=== PATIENT | male | born 1965 | race Caucasian/White ===

== ENCOUNTER 2016-10-20 19:05 | Emergency (ER) | payer MEDICARE, OTHER ==
[~2016-10-20] VITALS: Ht 167.6 cm; Wt 81.0 kg
[~2016-10-20 19:05] MED LIST: ASPI81TA82 PO; CYMB30CA PO; LOPR50TA12 PO; METHO500 PO; MORP30 PO
[2016-10-20 19:07] VITALS: BP 145/81; PULSE 93; RESP 15; TEMP 98.1; O2SAT 97
[2016-10-20 20:42] VITALS: BP 158/86; PULSE 70; RESP 18; O2SAT 100
[2016-10-20] MEDS ORDERED: diphenhydrAMINE HCL 50 MG/ML VIAL IVP ONE (20:45)
[2016-10-20] MEDS ORDERED: KETOROLAC TROMETHAMINE 30 MG/ML (IVP) VIAL IVP ONE (20:45)
[2016-10-20] MEDS ORDERED: PROCHLORPERAZINE INJ 10 MG/2 ML VIAL IVP ONE (20:45)
--- NOTE | 2016-10-20 21:12 | RADRPT ---
EXAM DATE/TIME: 10/20/2016 20:55 [facility] COMPARISON: CT BRAIN W/O CONTRAST, April 17, 2016, 0:38. INDICATIONS : Cephalgia. RADIATION DOSE: 33.94 CTDIvol (mGy) MEDICAL HISTORY : Hypertension. CVA SURGICAL HISTORY : None. ENCOUNTER: Initial ACUITY: 1 day PAIN SCALE: 8/10 LOCATION: cranial TECHNIQUE: Multiple contiguous axial images were obtained of the head. Using automated exposure control and adj ustment of the mA and/or kV according to patient size, radiation dose was kept as low as reasonably a chievable to obtain optimal diagnostic quality images. FINDINGS: CEREBRUM: The ventricles are normal for age. No evidence of midline shift, mass lesion, hemorrhage or acute in farction. No extra-axial fluid collections are seen. POSTERIOR FOSSA: The cerebellum and brainstem are intact. The 4th ventricle is midline. The cerebellopontine angle i s unremarkable. EXTRACRANIAL: The visualized portion of the orbits is intact. SKULL: The calvaria is intact. No evidence of skull fracture. CONCLUSION: Normal examination. Edilson Do MD on October 20, 2016 at 21:10 Board Certified Radiologist. This report was verified electronically.
[2016-10-20 21:17] LABS: AUTOMATED NEUTROPHIL # 6.3 TH/MM3 (1.8-7.7); BASOPHIL # 0.1 TH/MM3 (0-0.2); BASOPHIL % 0.6 % (0.0-2.0); EOSINOPHIL # 0.2 TH/MM3 (0-0.4); HEMATOCRIT 42.2 % (39.0-51.0); HEMO FLAGS DIFF FINAL; LYMPH % 21.9 % (9.0-44.0); LYMPHOCYTE # 2.1 TH/MM3 (1.0-4.8); MEAN CELL VOLUME 89.8 FL (80.0-100.0); MEAN CORPUSCULAR HEMOGLOBIN 30.7 PG (27.0-34.0); MEAN CORPUSCULAR HGB CONC 34.2 % (32.0-36.0); MONO % 10.5 % (0.0-8.0); PLATELET COUNT 276 TH/MM3 (150-450); RED CELL DISTRIBUTION WIDTH 13.7 % (11.6-17.2); WHITE BLOOD COUNT 9.6 TH/MM3 (4.0-11.0)
[2016-10-20 21:18] VITALS: BP 151/85; PULSE 67; RESP 18; O2SAT 100
[2016-10-20 21:29] LABS: BICARBONATE 29.1 MEQ/L (21.0-32.0); MAGNESIUM 2.4 MG/DL (1.5-2.5); POTASSIUM 3.5 MEQ/L (3.5-5.1)
--- NOTE | 2016-10-20 22:05 | PD ---
Data Data Last Documented VS Vital Signs Date Time Temp Pulse Resp B/P Pulse Ox O2 Delivery O2 Flow Rate FiO2 10/20/16 21:18 67 18 151/85 100 Room Air 10/20/16 19:07 98.1 Orders Complete Blood Count With Diff (10/20/16 20:45) Basic Metabolic Panel (Bmp) (10/20/16 20:45) Magnesium (Mg) (10/20/16 20:45) Ct Brain W/O Iv Contrast(Rout) (10/20/16 20:45) Iv Access Insert/Monitor (10/20/16 20:45) Ketorolac Inj (Toradol Inj) (10/20/16 20:45) Prochlorperazine Inj (Compazine Inj) (10/20/16 20:45) Diphenhydramine Inj (Benadryl Inj) (10/20/16 20:45) C-Reactive Protein (Crp) (10/20/16 20:49) Westergren Sedimentation Rate (10/20/16 20:52) Labs Laboratory Tests Test 10/20/16 21:00 White Blood Count 9.6 TH/MM3 Red Blood Count 4.70 MIL/MM3 Hemoglobin 14.4 GM/DL Hematocrit 42.2 % Mean Corpuscular Volume 89.8 FL Mean Corpuscular Hemoglobin 30.7 PG Mean Corpuscular Hemoglobin 34.2 % Concent Red Cell Distribution Width 13.7 % Platelet Count 276 TH/MM3 Mean Platelet Volume 8.1 FL Neutrophils (%) (Auto) 65.0 % Lymphocytes (%) (Auto) 21.9 % Monocytes (%) (Auto) 10.5 % Eosinophils (%) (Auto) 2.0 % Basophils (%) (Auto) 0.6 % Neutrophils # (Auto) 6.3 TH/MM3 Lymphocytes # (Auto) 2.1 TH/MM3 Monocytes # (Auto) 1.0 TH/MM3 Eosinophils # (Auto) 0.2 TH/MM3 Basophils # (Auto) 0.1 TH/MM3 CBC Comment DIFF FINAL Differential Comment Erythrocyte Sedimentation Rate 1 mm/hr Sodium Level 137 MEQ/L Potassium Level 3.5 MEQ/L Chloride Level 100 MEQ/L Carbon Dioxide Level 29.1 MEQ/L Anion Gap 8 MEQ/L Blood Urea Nitrogen 13 MG/DL Creatinine 1.24 MG/DL Estimat Glomerular Filtration 61 ML/MIN Rate Random Glucose 96 MG/DL Calcium Level 8.5 MG/DL Magnesium Level 2.4 MG/DL C-Reactive Protein LESS THAN 0.29 MG/DL MDM Supervised Visit with GEMA: Yes Narrative Course The history, exam, and medical decision-making in the associated midlevel provider note were completed with my assistance. I reviewed and agree with the findings presented. I attest that I had a [id number] encounter with the patient on the same day, and personally performed and documented my assessment and findings in the medical record. *My assessment and Findings: This is a 50-year-old male who presents to the emergency department with headache but spitting going on for 3-4 days. He saw his primary care doctor who gave him an injection of Toradol but the pains only worsening. It radiates back into his neck. He is not systemically ill. He has a normal neurologic exam. Labs were obtained which were all reassuring including normal inflammatory markers so I doubt epidural abscess or discitis. CT of the head was unremarkable. Patient's symptoms were not alleviated by Compazine and Toradol. He is opiate dependent at home, and takes morphine which is prescribed by the same physician routinely. Due to his chronic opiate dependence, patient was treated with opiates for headache and will be discharged home. Sherie Vargas MD Oct 20, 2016 22:04
--- NOTE | 2016-10-20 22:10 | PD ---
HPI Chief Complaint: Headache Time Seen by Provider: 22:05 Travel History International Travel<30 days: No Contact w/Intl Traveler<30days: No Traveled to known affect area: No History of Present Illness HPI 50-year-old male that presents to the ED for evaluation of severe headache. Per patient she's had this headache on and off for the past 3 days with nausea. Per patient he seems to start on the back of the neck and moves towards the front causing pressure in the back of the eyes as well as nausea. Per patient he denies any recent injury. Per patient he did went to see his doctor today who gave him Toradol for pain with minimal relief. The patient has no numbness , tilling, weakness. No blurry vision or double vision. He does state having headaches in the past but not as bad as this. He does have a history of chronic pain to the back and other areas. Patient was seen here in May for discitis. He denies any history of IV drug abuse or any drug abuse and per in the past he has been positive for cocaine. Patient currently takes pain medication including morphine. Per patient the headache is 8 out of 10. Not thunderclap. Not the worse headache of his life. PFSH Past Medical History Hx Anticoagulant Therapy: Yes (ASA) Arthritis: Yes Asthma: No Autoimmune Disease: No Blood Disorders: No Bipolar Disorder: Yes Anxiety: Yes Depression: Yes Heart Rhythm Problems: No Cancer: No Cardiac Catheterization: Yes (2001) Cardiovascular Problems: Yes (HTN) High Cholesterol: Yes Chemotherapy: No Chest Pain: Yes Congestive Heart Failure: Yes (borderline) COPD: No Cerebrovascular Accident: No Diabetes: No Diminished Hearing: Yes (OCCASIONAL DIZZINESS FROM AN OLD EAR INJURY) Deep Vein Thrombosis: Yes Endocrine: No Gastrointestinal Disorders: Yes (Hepatitis B ) GERD: Yes Genitourinary: No Headaches: No Hepatitis: Yes (TYPE B) Hiatal Hernia: No Heparin Induced Thrombocytopen: No Herniated Disk: Yes Hypertension: Yes Immune Disorder: No Implanted Vascular Access Dvce: No Musculoskeletal: Yes (athritis) Neurologic: Yes (TIA ) Psychiatric: Yes Reproductive: No Respiratory: No Immunizations Current: Yes Migraines: No Myocardial Infarction: Yes Radiation Therapy: No Seizures: Yes (2005 RELATED TO WITHDRAWAL FROM BENZOS) Sleep Apnea: No Thyroid Disease: No Ulcer: No Tetanus Vaccination: < 5 Years Influenza Vaccination: Yes Past Surgical History Abdominal Surgery: No Appendectomy: Yes Cardiac Surgery: No Coronary Artery Bypass Graft: No Ear Surgery: No Endocrine Surgery: No Eye Surgery: No Genitourinary Surgery: No Neurologic Surgery: Yes Oral Surgery: No Thoracic Surgery: No Tonsillectomy: Yes Other Surgery: Yes (steroid injections for pain related to lower back) Family History Family Myocardial Infarction: Yes (mother had NH) Social History Alcohol Use: Yes (PT STATES " ON OCCASION" ) Tobacco Use: Yes (1/2 PPD) Substance Use: No Allergies-Medications (Allergen,Severity, Reaction): Coded Allergies: Penicillin (Verified Allergy, Severe, RASH, 10/20/16) Reported Meds & Prescriptions Reported Meds & Active Scripts Active Morphine [id number] 30 Mg Tab 30 Mg PO Q12HR Reported Cymbalta (Duloxetine HCl) 30 Mg Cap 60 Mg PO BID Lopressor (Metoprolol Tartrate) 50 Mg Tab 25 Mg PO TID Aspir-81 (Aspirin) 81 Mg Tab 81 Mg PO DAILY Review of Systems Except as stated in HPI: all other systems reviewed are Neg Physical Exam Narrative GENERAL: SKIN: Warm and dry. HEAD: Atraumatic. Normocephalic. EYES: Pupils equal and round 4 mm reactive to light and accommodation. No scleral icterus. No injection or drainage. ENT: No nasal bleeding or discharge. Mucous membranes pink and moist. Tongue is midline. No uvula deviation. NECK: Trachea midline. No JVD. CARDIOVASCULAR: Regular rate and rhythm. No murmurs, S3, S4. RESPIRATORY: No accessory muscle use. Clear to auscultation. Breath sounds equal bilaterally. GASTROINTESTINAL: Abdomen soft, non-tender, nondistended. Hepatic and splenic margins not palpable. MUSCULOSKELETAL: Extremities without clubbing, cyanosis, or edema. No obvious deformities. Full range of motion of the upper and lower extremities bilaterally. 2+ pulses bilaterally. No cervical, thoracic, lumbar spine tenderness to palpation. NEUROLOGICAL: Awake and alert. No obvious cranial nerve deficits. Motor grossly within normal limits. Five out of 5 muscle strength in the arms and legs. Normal speech. PSYCHIATRIC: Appropriate mood and affect; insight and judgment normal. Data Data Last Documented VS Vital Signs Date Time Temp Pulse Resp B/P Pulse Ox O2 Delivery O2 Flow Rate FiO2 10/20/16 22:21 72 18 166/82 99 Room Air 10/20/16 19:07 98.1 Orders Complete Blood Count With Diff (10/20/16 20:45) Basic Metabolic Panel (Bmp) (10/20/16 20:45) Magnesium (Mg) (10/20/16 20:45) Ct Brain W/O Iv Contrast(Rout) (10/20/16 20:45) Iv Access Insert/Monitor (10/20/16 20:45) Ketorolac Inj (Toradol Inj) (10/20/16 20:45) Prochlorperazine Inj (Compazine Inj) (10/20/16 20:45) Diphenhydramine Inj (Benadryl Inj) (10/20/16 20:45) C-Reactive Protein (Crp) (10/20/16 20:49) Westergren Sedimentation Rate (10/20/16 20:52) Morphine Inj (Morphine Inj) (10/20/16 22:15) Ondansetron Inj (Zofran Inj) (10/20/16 22:15) Labs Laboratory Tests Test 10/20/16 21:00 White Blood Count 9.6 TH/MM3 Red Blood Count 4.70 MIL/MM3 Hemoglobin 14.4 GM/DL Hematocrit 42.2 % Mean Corpuscular Volume 89.8 FL Mean Corpuscular Hemoglobin 30.7 PG Mean Corpuscular Hemoglobin 34.2 % Concent Red Cell Distribution Width 13.7 % Platelet Count 276 TH/MM3 Mean Platelet Volume 8.1 FL Neutrophils (%) (Auto) 65.0 % Lymphocytes (%) (Auto) 21.9 % Monocytes (%) (Auto) 10.5 % Eosinophils (%) (Auto) 2.0 % Basophils (%) (Auto) 0.6 % Neutrophils # (Auto) 6.3 TH/MM3 Lymphocytes # (Auto) 2.1 TH/MM3 Monocytes # (Auto) 1.0 TH/MM3 Eosinophils # (Auto) 0.2 TH/MM3 Basophils # (Auto) 0.1 TH/MM3 CBC Comment DIFF FINAL Differential Comment Erythrocyte Sedimentation Rate 1 mm/hr Sodium Level 137 MEQ/L Potassium Level 3.5 MEQ/L Chloride Level 100 MEQ/L Carbon Dioxide Level 29.1 MEQ/L Anion Gap 8 MEQ/L Blood Urea Nitrogen 13 MG/DL Creatinine 1.24 MG/DL Estimat Glomerular Filtration 61 ML/MIN Rate Random Glucose 96 MG/DL Calcium Level 8.5 MG/DL Magnesium Level 2.4 MG/DL C-Reactive Protein LESS THAN 0.29 MG/DL MDM Medical Decision Making Medical Screen Exam Complete: Yes Emergency Medical Condition: Yes Medical Record Reviewed: Yes Interpretation(s) Last Impressions Head CT 10/20/162044 Signed Impressions: Service Date/Time: September 20:55 - CONCLUSION: Normal examination. Edilson Do MD CBC & BMP Diagram 10/20/16 21:00 ESR and CRP negative. Differential Diagnosis Migraine headache versus tension headache versus neuropathy versus discitis versus less likely bleed Narrative Course 50-year-old male that presents to the ED for evaluation of severe headache. Patient was properly examined and was found to have signs and symptoms that appear to consistent with tension headache or headache related more to the neck. Case was discussed in my attending for agrees with plan. Patient had imaging and labs ordered. ESR and CRP were done to rule out any sign of infection as patient does have a history of discitis in the past of questionable source. Labs and imaging were essentially done and were negative. Patient was given IV Compazine, Benadryl and Toradol with minimal relief as well as with fluids. My attending Dr Vargas evaluated the patient with me and agrees with treating with pain medication as patient does have a history of opiate dependence. Patient was given IV morphine and Zofran. Patient will be reassessed any better patient will be discharged home with instructions to follow up with PCP. See ED if worst. Diagnosis Primary Impression: Tension headache Patient Instructions: General Instructions, Narcotic given in the ED Additional Instructions: F/u PCP. See ED if worst. Motrin or tylenol for pain. Med/Other Pt SpecificInfo: No Change to Meds Disposition: 01 DISCHARGE HOME Condition: Stable Binh Gray Oct 20, 2016 22:10
[2016-10-20] MEDS ORDERED: ONDANSETRON HCL 4 MG/2 ML VIAL IV PUSH ONE (22:15)
[2016-10-20] MEDS ORDERED: MORPHINE SULFATE 8 MG/ML INJ IV PUSH ONE (22:15)
[2016-10-20 22:21] VITALS: BP 166/82; PULSE 72; RESP 18; O2SAT 99
== END 2016-10-20 23:21 | disposition home or self-care (01) ==
LOC: NEPE 19:05
DX: G44.209 Tension-type headache, unspecified, not intractable (principal); I10 Essential (primary) hypertension; E78.00 Pure hypercholesterolemia, unspecified; F17.200 Nicotine dependence, unspecified, uncomplicated; I25.2 Old myocardial infarction; H91.90 Unspecified hearing loss, unspecified ear; Z79.82 Long term (current) use of aspirin; Z86.718 Personal history of other venous thrombosis and embolism; Z86.59 Personal history of other mental and behavioral disorders; Z87.39 Personal history of other diseases of the musculoskeletal system and connective tissue; Z86.79 Personal history of other diseases of the circulatory system; Z87.19 Personal history of other diseases of the digestive system; Z86.19 Personal history of other infectious and parasitic diseases; Z86.69 Personal history of other diseases of the nervous system and sense organs; Z79.899 Other long term (current) drug therapy
CPT/HCPCS: 70450; 80048; 83735; 85025; 85652; 86140; 96374; 96375; 99284; J0780; J1200; J1885; J2270; J2405

== ENCOUNTER 2016-10-22 20:24 | Emergency (ER) | payer MEDICARE, OTHER ==
[~2016-10-22] VITALS: Ht 167.6 cm; Wt 82.0 kg
[~2016-10-22 20:24] MED LIST changes: -METHO500 PO
[2016-10-22 20:26] VITALS: BP 130/62; PULSE 80; RESP 18; TEMP 97.7; O2SAT 98
[2016-10-22] MEDS ORDERED: MORP15TA73 PO (20:39)
[2016-10-22] MEDS ORDERED: ASPI81TA81 (20:39)
[2016-10-22] MEDS ORDERED: METO-309 PO (20:39)
[2016-10-22] MEDS ORDERED: CYMB60CA PO (20:39)
[2016-10-22] MEDS ORDERED: diphenhydrAMINE HCL 50 MG/ML VIAL IV PUSH ONE (20:45)
[2016-10-22] MEDS ORDERED: KETOROLAC TROMETHAMINE 30 MG/ML (IVP) VIAL IV PUSH ONE (20:45)
[2016-10-22] MEDS ORDERED: PROCHLORPERAZINE INJ 10 MG/2 ML VIAL IVS ONE (20:45)
[2016-10-22] MEDS ORDERED: SODIUM CHLOR 0.9% 1000 ML INJ 1,000 ML IV ONE (20:45)
--- NOTE | 2016-10-22 20:57 | PD ---
HPI Chief Complaint: Headache Time Seen by Provider: 20:51 Travel History International Travel<30 days: No Contact w/Intl Traveler<30days: No Traveled to known affect area: No History of Present Illness HPI 50-year-old white male presents to emergency department second time with complaints of headache. He states that he's been having persistent headaches now for the last 4 days. He was seen by his primary care doctor on and given a shot of Toradol. He had his morphine refilled but he could not get it filled yet because he ran out prematurely. He was also given a prescription for Robaxin which she has not filled. Patient has a prescription for an outpatient MRI of his neck. He has had this now for the past month. He was seen on Monday in the ER and had a CAT scan performed. The CAT scan was unremarkable for any acute process. He is given medication some temporary relief of his headache. He states that the headache has returned. He states that it starts at the back of the base of his head by his neck and radiates up around his head to the front. He states that is a sharp throbbing pounding pain. He rates the pain a 8/10 now but has been up as high as 10 out of 10. He had associated nausea but no vomiting. Occasional dizziness. He denies any recent illness or injury. No fever chills, ear pain, sore throat, cough, blurred vision, double vision, photophobia. He does have a history of intermittent tingling in his hands from his neck. Patient has history of chronic neck pain, substance abuse, discitis in his back and which I diagnosed back in May. PFSH Past Medical History Hx Anticoagulant Therapy: Yes (ASA) Arthritis: Yes Asthma: No Autoimmune Disease: No Blood Disorders: No Bipolar Disorder: Yes Anxiety: Yes Depression: Yes Heart Rhythm Problems: No Cancer: No Cardiac Catheterization: Yes (2001) Cardiovascular Problems: Yes (DC 2001/HTN) High Cholesterol: Yes Chemotherapy: No Chest Pain: Yes Congestive Heart Failure: Yes (borderline) COPD: No Cerebrovascular Accident: No Diabetes: No Diminished Hearing: Yes (OCCASIONAL DIZZINESS FROM AN OLD EAR INJURY) Deep Vein Thrombosis: Yes Endocrine: No Gastrointestinal Disorders: Yes (Hepatitis B ) GERD: Yes Genitourinary: No Headaches: No Hepatitis: Yes (TYPE B) Hiatal Hernia: No Heparin Induced Thrombocytopen: No Herniated Disk: Yes Hypertension: Yes Immune Disorder: No Implanted Vascular Access Dvce: No Musculoskeletal: Yes (athritis) Neurologic: Yes (TIA ) Psychiatric: Yes Reproductive: No Respiratory: No Immunizations Current: Yes Migraines: No Myocardial Infarction: Yes Radiation Therapy: No Seizures: Yes (2006 RELATED TO WITHDRAWAL FROM BENZOS) Sleep Apnea: No Thyroid Disease: No Ulcer: No Past Surgical History Abdominal Surgery: No Appendectomy: Yes Cardiac Surgery: No Coronary Artery Bypass Graft: No Ear Surgery: No Endocrine Surgery: No Eye Surgery: No Genitourinary Surgery: No Neurologic Surgery: Yes Oral Surgery: No Thoracic Surgery: No Tonsillectomy: Yes Other Surgery: Yes (steroid injections for pain related to lower back) Social History Alcohol Use: Yes (PT STATES " ON OCCASION" ) Tobacco Use: Yes (2 PPD) Substance Use: No Allergies-Medications (Allergen,Severity, Reaction): Coded Allergies: Penicillin (Verified Allergy, Severe, RASH, 10/22/16) Reported Meds & Prescriptions Reported Meds & Active Scripts Active Reported Aspir-81 (Aspirin) [address] (Duloxetine HCl) 60 Mg Capdr 60 Mg PO BID Lopressor (Metoprolol Tartrate) 50 Mg Tab 50 Mg PO TID Morphine Sulfate CR (Morphine Sulfate) 15 Mg Tab 15 Mg PO BID Review of Systems Except as stated in HPI: all other systems reviewed are Neg Physical Exam Narrative GENERAL: Well-developed, well-nourished in no apparent distress. Nontoxic appearing. HEAD: Normocephalic, atraumatic. EYES: Pupils equal round and reactive. Extraocular motions intact. No scleral icterus. No injection or drainage. ENT: Nose clear. Throat without erythema, tonsillar hypertrophy or exudate. Uvula midline. Airway patent. NECK: Trachea midline. Supple, complaints of diffuse paraspinal tenderness, moves head freely. No central bony tenderness. Mild spasm. CARDIOVASCULAR: Regular rate and rhythm without murmurs, gallops, or rubs. RESPIRATORY: Clear to auscultation. Breath sounds equal bilaterally. No wheezes , rales, or rhonchi. GASTROINTESTINAL: Abdomen soft, non-tender, nondistended. No hepato-splenomegaly , or palpable masses. No guarding. EXTREMITIES: No clubbing, cyanosis, or edema. No joint tenderness. BACK: Nontender without deformity. No flank tenderness. NEUROLOGICAL: Awake, alert and oriented x 3 .Cranial nerves grossly intact. Motor and sensory grossly within normal limits. Normal speech. The patient sits up and moves freely. I see no acute sensorimotor deficits. Normal gait. No ataxia. Data Data Last Documented VS Vital Signs Date Time Temp Pulse Resp B/P Pulse Ox O2 Delivery O2 Flow Rate FiO2 10/22/16 20:26 97.7 80 18 130/62 98 Orders Iv Access Insert/Monitor (10/22/16 20:44) Sodium Chlor 0.9% 1000 Ml Inj (Ns 1000 M (10/22/16 20:45) Diphenhydramine Inj (Benadryl Inj) (10/22/16 20:45) Prochlorperazine Inj (Compazine Inj) (10/22/16 20:45) Ketorolac Inj (Toradol Inj) (10/22/16 20:45) MDM Medical Decision Making Medical Screen Exam Complete: Yes Emergency Medical Condition: Yes Medical Record Reviewed: Yes Differential Diagnosis MDM: High Differential diagnoses: Subarachnoid hemorrhage, intracranial bleed, aneurysm, pseudotumor, migraine, cluster headache, atypical migraine, temporal arteritis, connective tissue disorder, hypertension, temporal arteritis, sinusitis, sinus headache,malingering, substance abuse Narrative Course IV access is obtained. Patient's given a liter bolus of saline, Benadryl 50 mg IV, Compazine 10 mg IV, and 30 g of Toradol IV. The patient is currently out of his morphine. He cannot get it filled until next week because he ran out early and insurance would not pay. Review of the medical records indicates a history of substance abuse the past as well as chronic neck and back pain. I suspect that this is partially drug withdrawal, and chronic neck pain causing tension headache. I see no lateralizing signs. His CAT scan was unremarkable. He was seen by his doctor this week as well. The patient will be treated symptomatically. He'll be advised to see his doctor on Monday. The patient is reexamined at 2131. He states that his headache is improving. He is feeling drowsy. He states that the pain is not completely resolved. I explained to the patient that I suspect his headache is a tension type relating to his distal disease in his neck and lack of his opiates. He is advised to get his MRI of his neck as he is given a prescription for. I'm also an for him that he needs to see his doctor on Monday to discuss possible pain management involvement for injections. Patient verbally states understanding and is in agreement with this treatment plan of follow-up. This is tension headache, acute exacerbation of chronic neck pain, opiate withdrawal Diagnosis Primary Impression: Tension headache Additional Impressions: acute exacerbation of chronic neck pain Opiate withdrawal Patient Instructions: General Instructions Additional Instructions: Rest. Sleep. No driving today. Follow-up with your doctor on Monday. Get sure MRI scheduled. Follow-up with pain management to consider possible cortisone injections. Disposition: 01 DISCHARGE HOME Condition: Stable Compa Cabrera Oct 22, 2016 20:56
== END 2016-10-22 21:55 | disposition home or self-care (01) ==
LOC: NEPB 20:24
DX: G44.209 Tension-type headache, unspecified, not intractable (principal); M54.2 Cervicalgia; G89.29 Other chronic pain; F11.23 Opioid dependence with withdrawal
CPT/HCPCS: 96374; 96375; 99283; J0780; J1200; J1885; J7030

== ENCOUNTER 2016-10-27 06:59 | Emergency (ER) | payer MEDICARE, OTHER ==
[~2016-10-27] VITALS: Ht 167.6 cm; Wt 82.0 kg
[~2016-10-27 06:59] MED LIST changes: +ASPI81TA81; -ASPI81TA82 PO; -CYMB30CA PO; +CYMB60CA PO; -LOPR50TA12 PO; +METO-309 PO; +MORP15TA73 PO; -MORP30 PO
[2016-10-27 07:10] VITALS: BP 125/77; PULSE 90; RESP 18; TEMP 98.5; O2SAT 100
--- NOTE | 2016-10-27 07:42 | PD ---
HPI Chief Complaint: Alcohol/Drug Intoxication Time Seen by Provider: 07:20 Travel History International Travel<30 days: No Contact w/Intl Traveler<30days: No Traveled to known affect area: No History of Present Illness HPI This is a 50 year old male who presents to the emergency department with headache that started last night, but has been pretty constant over the past week, throbbing, 7/10. He says he thought it was going to make him pass out at home. It worsens when he goes from sitting to standing and he feels like his head is "going to explode". He has noticed some spots in his vision and some changes in his sense of smell. No family history of connective tissue disorder or aneurysm. He does have a history of high blood pressure. He did use cocaine last evening. PFSH Past Medical History Hx Anticoagulant Therapy: Yes (ASA) Arthritis: Yes Asthma: No Autoimmune Disease: No Blood Disorders: No Bipolar Disorder: Yes Anxiety: Yes Depression: Yes Heart Rhythm Problems: No Cancer: No Cardiac Catheterization: Yes (2001) Cardiovascular Problems: Yes (OR 2001/HTN) High Cholesterol: Yes Chemotherapy: No Chest Pain: Yes Congestive Heart Failure: Yes (borderline) COPD: No Cerebrovascular Accident: No Diabetes: No Diminished Hearing: Yes (OCCASIONAL DIZZINESS FROM AN OLD EAR INJURY) Deep Vein Thrombosis: Yes Endocrine: No Gastrointestinal Disorders: Yes (Hepatitis B ) GERD: Yes Genitourinary: No Headaches: No Hepatitis: Yes (TYPE B) Hiatal Hernia: No Heparin Induced Thrombocytopen: No Herniated Disk: Yes Hypertension: Yes Immune Disorder: No Implanted Vascular Access Dvce: No Musculoskeletal: Yes (athritis) Neurologic: Yes (TIA ) Psychiatric: Yes Reproductive: No Respiratory: No Immunizations Current: Yes Migraines: No Myocardial Infarction: Yes Radiation Therapy: No Seizures: Yes (2005 RELATED TO WITHDRAWAL FROM BENZOS) Sleep Apnea: No Thyroid Disease: No Ulcer: No Past Surgical History Abdominal Surgery: No Appendectomy: Yes Cardiac Surgery: No Coronary Artery Bypass Graft: No Ear Surgery: No Endocrine Surgery: No Eye Surgery: No Genitourinary Surgery: No Neurologic Surgery: Yes Oral Surgery: No Thoracic Surgery: No Tonsillectomy: Yes Other Surgery: Yes (steroid injections for pain related to lower back) Family History Family Myocardial Infarction: Yes (mother had OR) Social History Alcohol Use: Yes (PT STATES " ON OCCASION" ) Tobacco Use: Yes (1/2 PPD) Substance Use: No ("ALOT TONIGHT "COCINE ) Allergies-Medications (Allergen,Severity, Reaction): Coded Allergies: Penicillin (Verified Allergy, Severe, RASH, 10/27/16) Reported Meds & Prescriptions Reported Meds & Active Scripts Active Reported Aspir-81 (Aspirin) [address] (Duloxetine HCl) 60 Mg Capdr 60 Mg PO BID Lopressor (Metoprolol Tartrate) 50 Mg Tab 50 Mg PO TID Morphine Sulfate CR (Morphine Sulfate) 15 Mg Tab 15 Mg PO BID Review of Systems Except as stated in HPI: all other systems reviewed are Neg Physical Exam Narrative GENERAL:Well appearing, no acute distress SKIN: Warm and dry. HEAD: Atraumatic. Normocephalic. EYES: Pupils equal and round. No injection or drainage. ENT: Moist mucous membranes NECK: Trachea midline. CARDIOVASCULAR: Regular rate and rhythm. No murmur appreciated. RESPIRATORY: Clear to auscultation. Breath sounds equal bilaterally. GASTROINTESTINAL: Abdomen soft, non-tender, nondistended. MUSCULOSKELETAL: No obvious deformities. NEUROLOGICAL: Awake and alert. No obvious cranial nerve deficits. No dysarthria or aphasia. No upper or lower extremity drift. No upper extremity ataxia. Visual burrows intact. PSYCHIATRIC: Appropriate mood and affect; insight and judgment normal. Data Data Last Documented VS Vital Signs Date Time Temp Pulse Resp B/P Pulse Ox O2 Delivery O2 Flow Rate FiO2 10/27/16 10:30 82 20 137/88 96 Room Air 10/27/16 07:10 98.5 Orders Complete Blood Count With Diff (10/27/16 07:54) Comprehensive Metabolic Panel (10/27/16 07:54) ^ Insert Iv (10/27/16 07:54) Mri Brain W&W/O Contrast (10/27/16 ) Mri C Spine W&W/O Contrast (10/27/16 ) Mra Brain W/O Contrast (Cow) (10/27/16 ) Mra Carotids W Contrast (10/27/16 ) Hydromorphone Pf Inj (Dilaudid Pf Inj) (10/27/16 09:15) Ondansetron Inj (Zofran Inj) (10/27/16 09:15) Labs Laboratory Tests Test 10/27/16 07:24 White Blood Count 9.2 TH/MM3 Red Blood Count 4.92 MIL/MM3 Hemoglobin 15.3 GM/DL Hematocrit 44.4 % Mean Corpuscular Volume 90.3 FL Mean Corpuscular Hemoglobin 31.1 PG Mean Corpuscular Hemoglobin 34.4 % Concent Red Cell Distribution Width 13.9 % Platelet Count 292 TH/MM3 Mean Platelet Volume 8.1 FL Neutrophils (%) (Auto) 68.8 % Lymphocytes (%) (Auto) 23.5 % Monocytes (%) (Auto) 7.0 % Eosinophils (%) (Auto) 0.4 % Basophils (%) (Auto) 0.3 % Neutrophils # (Auto) 6.3 TH/MM3 Lymphocytes # (Auto) 2.2 TH/MM3 Monocytes # (Auto) 0.6 TH/MM3 Eosinophils # (Auto) 0.0 TH/MM3 Basophils # (Auto) 0.0 TH/MM3 CBC Comment DIFF FINAL Differential Comment Sodium Level 137 MEQ/L Potassium Level 4.1 MEQ/L Chloride Level 100 MEQ/L Carbon Dioxide Level 23.2 MEQ/L Anion Gap 14 MEQ/L Blood Urea Nitrogen 12 MG/DL Creatinine 1.23 MG/DL Estimat Glomerular Filtration 62 ML/MIN Rate Random Glucose 75 MG/DL Calcium Level 8.7 MG/DL Total Bilirubin 0.4 MG/DL Aspartate Amino Transf 41 U/L (AST/SGOT) Alanine Aminotransferase 32 U/L (ALT/SGPT) Alkaline Phosphatase 55 U/L Total Protein 7.6 GM/DL Albumin 4.4 GM/DL MDM Medical Decision Making Medical Screen Exam Complete: Yes Emergency Medical Condition: Yes Interpretation(s) Afebrile, no tachycardia, normotensive No leukocytosis Electrolytes are reassuring Last 24 hours Impressions Head Magnetic Resonance Angiography 10/27/16 Signed Impressions: Service Date/Time: October 09:27 - CONCLUSION: Unremarkable MR angiography of the brain. Variants of tunica-biloxi of Gill anatomy as above. Hal Claros MD Cervical Spine MRI 10/27/16 Signed Impressions: Service Date/Time: October 09:27 - CONCLUSION: No acute abnormality. Mild degenerative disc disease at C5-6 and C6-7 as described. No evidence of enhancing lesions or acute inflammatory process. Michael Campoverde MD Brain MRI 10/27/16 Signed Impressions: Service Date/Time: October 09:27 - CONCLUSION: No acute intracranial abnormality. Scattered sinus disease. Bola Smiley MD Differential Diagnosis Migraine headache, tension headache, vascular dissection, aortic dissection, cervical discitis Narrative Course This is a 50-year-old male who presents to the emergency department with a headache involving the posterior head and neck, constant and severe for one week. He does have a lot of substance abuse issues including opiate dependence as well as cocaine abuse last evening. He was placed on a monitor and an IV is established. Labs are obtained which are reassuring. I seen this patient twice in the past week. He does describe a concerning nature of headache with some change with standing up, and he has risk factors for severe pathology. I obtained an MRI and MRA which were both reassuring. I think the patient can be discharged home with symptomatic treatment for migraine. Diagnosis Primary Impression: Migraine headache Qualified Code: G43.001 - Migraine without aura and with status migrainosus, not intractable Additional Impression: Cocaine abuse Patient Instructions: General Instructions Additional Instructions: If you develop severe worsening headache, persistent vomiting, numbness, weakness, difficulty walking or difficulty talking return to the emergency department immediately. Sometimes in the emergency department we did not identify the cause of headaches. If you continued to have headaches it is very important that he followup with her primary care physician as you may need further testing with an MRI. Med/Other Pt SpecificInfo: Prescription(s) given Scripts Naproxen 500 Mg Ggh128 Mg PO BID PRN (PAIN SCALE 4 TO 10) #20 TAB Prov:Sherie Vargas MD 10/27/16 Disposition: 01 DISCHARGE HOME Condition: Stable Sherie Vargas MD Oct 27, 2016 07:42
[2016-10-27 08:32] LABS: AUTOMATED NEUTROPHIL # 6.3 TH/MM3 (1.8-7.7); BASOPHIL % 0.3 % (0.0-2.0); EOSINOPHIL % 0.4 % (0.0-4.0); HEMATOCRIT 44.4 % (39.0-51.0); HEMO FLAGS DIFF FINAL; LYMPH % 23.5 % (9.0-44.0); LYMPHOCYTE # 2.2 TH/MM3 (1.0-4.8); MEAN CELL VOLUME 90.3 FL (80.0-100.0); MEAN CORPUSCULAR HEMOGLOBIN 31.1 PG (27.0-34.0); MEAN CORPUSCULAR HGB CONC 34.4 % (32.0-36.0); NEUT % 68.8 % (16.0-70.0); PLATELET COUNT 292 TH/MM3 (150-450); RED BLOOD COUNT 4.92 MIL/MM3 (4.50-5.90); RED CELL DISTRIBUTION WIDTH 13.9 % (11.6-17.2); WHITE BLOOD COUNT 9.2 TH/MM3 (4.0-11.0)
[2016-10-27 08:53] LABS: ANION GAP 14 MEQ/L (5-15); AST (GOT) 41 U/L (15-37); BICARBONATE 23.2 MEQ/L (21.0-32.0); BLOOD UREA NITROGEN 12 MG/DL (7-18); CHLORIDE 100 MEQ/L (98-107); GLOMERULAR FILTRATION RATE 62 ML/MIN (>89); POTASSIUM 4.1 MEQ/L (3.5-5.1); SODIUM (NA) 137 MEQ/L (136-145)
[2016-10-27 08:57] LABS: ALKALINE PHOSPHATASE 55 U/L (45-117); ALT (GPT) 32 U/L (12-78); TOTAL BILIRUBIN ADULT 0.4 MG/DL (0.2-1.0)
[2016-10-27] MEDS ORDERED: ONDANSETRON HCL 4 MG/2 ML VIAL IV PUSH ONE (09:15)
[2016-10-27] MEDS ORDERED: HYDROmorphone HCL PF 1 MG/ML VIAL IV PUSH ONE (09:15)
[2016-10-27 10:30] VITALS: BP 137/88; PULSE 82; RESP 20; O2SAT 96
--- NOTE | 2016-10-27 10:40 | RADRPT ---
EXAM DATE/TIME: 10/27/2016 09:27 [facility] COMPARISON: No previous studies available for comparison. INDICATIONS : Cephalgia. MEDICAL HISTORY : Hypertension. SURGICAL HISTORY : Appendectomy. Tonsillectomy. Lt tibia, rt knee ENCOUNTER: Initial ACUITY: 1 day PAIN SCORE: 3/10 LOCATION: cranial Please note a normal MRA of the brain does not entirely exclude the possibility of a small aneurysm, nor the possibility of distal intracranial vessel disease. TECHNIQUE: 3D time of flight MRA was performed. Source images, multiplanar STS MIP, and 3D volume MIP reconstru ctions were reviewed. FINDINGS: Examination of the anterior circulation demonstrates no evidence of aneurysm or vascular information. No intracranial stenosis is identified. The distal cerebral vessels fill normally. Examination of posterior fossa also demonstrates no evidence of aneurysm or vascular malformation. Th e right vertebral artery terminates in the posterior inferior cerebral artery which can be seen as a normal variation with a dominant left vertebral artery. There are patent posterior communicating david kailyn bilaterally. CONCLUSION: Unremarkable MR angiography of the brain. Variants of wiyot of Gill anatomy as above. Hal Claros MD on October 27, 2016 at 10:36 Board Certified Radiologist. This report was verified electronically.
--- NOTE | 2016-10-27 10:46 | RADRPT ---
EXAM DATE/TIME: 10/27/2016 09:27 [facility] COMPARISON: CT BRAIN W/O CONTRAST, October 20, 2016, 20:55. INDICATIONS : Cephalgia. CONTRAST: 20 cc Omniscan (gadodiamide) IV MEDICAL HISTORY : Hypertension. SURGICAL HISTORY : Appendectomy. Tonsillectomy. Lt tibia, rt knee ENCOUNTER: Initial ACUITY: 1 day PAIN SCORE: 3/10 LOCATION: cranial TECHNIQUE: Multiplanar, multisequence MRI of the brain was performed both prior to and following the administrat ion of paramagnetic contrast. FINDINGS: CEREBRUM: The ventricles are normal for age. No evidence of midline shift, mass lesion, hemorrhage or acute in farction. No extraaxial fluid collections are seen. The pituitary gland and suprasellar cistern are normal in configuration. WHITE MATTER: No significant signal abnormalities are seen in the white matter. POSTERIOR FOSSA: The cerebellum and brainstem are intact. The 4th ventricle is midline. The cerebellopontine angle is unremarkable. The cerebellar tonsils are normal in position. DIFFUSION IMAGING: No focal areas of restricted diffusion are seen. No evidence of acute infarction. EXTRACRANIAL: The visualized portions of the orbits are unremarkable. Scattered sinus disease. POST-CONTRAST: No abnormal areas of parenchymal or dural enhancement. No evidence of blood-brain barrier breakdown. CONCLUSION: No acute intracranial abnormality. Scattered sinus disease. Bola Smiley MD on October 27, 2016 at 10:43 Board Certified Radiologist. This report was verified electronically.
--- NOTE | 2016-10-27 10:50 | RADRPT ---
EXAM DATE/TIME: 10/27/2016 09:27 [facility] COMPARISON: No previous studies available for comparison. INDICATIONS : Neck pain. CONTRAST: 20 cc Omniscan (gadodiamide) IV MEDICAL HISTORY : Hypertension. SURGICAL HISTORY : Appendectomy. Tonsillectomy. Lt tibia, rt knee ENCOUNTER: Initial ACUITY: 1 day PAIN SCORE: 3/10 LOCATION: neck TECHNIQUE: Multiplanar, multisequence MRI examination of the cervical spine was performed. FINDINGS: Alignment: A mild scoliotic deformity is identified of the lumbar spine. The curvature is convex to the left in the upper cervical segments. AP alignment is well preserved without evidence of listhesis. Craniocerv ical alignment is intact. Osseous structures and facet joints: Axial bodies are intact. Facet joints are well aligned. There is no evidence of fracture or bone josesito ow edema. There are no enhancing lesions. Intervertebral disc spaces: Mild degenerative disc disease is noted. A small left paracentral and posterolateral protrusion is seen at C5-6. There is mild foraminal encro achment but no significant epidural mass effect. A small left paracentral disc osteophyte complex with mild epidural effacement is noted. There is no significant foraminal encroachment. The vertebral disc are otherwise unremarkable. Neurologic structures: The spinal cord is normal caliber and signal intensity. There is no evidence of significant nerve jeannette t compression. There are no epidural, intradural intramedullary enhancing lesions. CONCLUSION: No acute abnormality. Mild degenerative disc disease at C5-6 and C6-7 as described. No evidence of enhancing lesions or acute inflammatory process. Michael Campoverde MD on October 27, 2016 at 10:42 Board Certified Radiologist. This report was verified electronically.
[2016-10-27] MEDS ORDERED: NAPR500T PO (11:10)
--- NOTE | 2016-10-27 11:25 | RADRPT ---
EXAM DATE/TIME: 10/27/2016 09:27 [facility] COMPARISON: No previous studies available for comparison. INDICATIONS : Aneurysm. CONTRAST: 20 cc Omniscan (gadodiamide) IV MEDICAL HISTORY : Hypertension. SURGICAL HISTORY : Appendectomy. Tonsillectomy. Lt tibia, rt knee ENCOUNTER: Initial ACUITY: 1 day PAIN SCORE: 3/10 LOCATION: cranial Percent stenosis is calculated using the diameter of the stenotic region over the diameter of the nor mal distal internal carotid artery. TECHNIQUE: Bolus infused MRA of the extracranial circulation was performed using a neurovascular coil. Post pro cessing was performed including rotationg subvolume maximum intensity projections of each carotid art prudence, rotating full volume maximum intensity projections of both carotid arteries, sagittal and sosa l sliding thin slab reformations of each carotid artery, and left oblique sliding thin slab reformati on through the aortic arch to include the origin of the arch branch vessels. FINDINGS: AORTIC ARCH: There is a three vessel origin of the great vessels from the aorta. No evidence of ostial narrowing. RIGHT CAROTID: The common carotid artery is intact. The carotid bulb has a normal configuration without ulceration or narrowing. The internal carotid artery lumen is smooth without stenosis. The external carotid ar sonya is intact. LEFT CAROTID: The common carotid artery is intact. The carotid bulb has a normal configuration without ulceration or narrowing. The internal carotid artery lumen is smooth without stenosis. The external carotid ar sonya is intact. VERTEBRALS: Left vertebral artery is dominant and widely patent. Right vertebral artery terminates at the skull b ase. CONCLUSION: Carotid MRA within normal limits. Rigoberto Lamas MD on October 27, 2016 at 11:20 Board Certified Radiologist. This report was verified electronically.
[2016-10-27] MEDS ORDERED: GADODIAMIDE PF 287 MG/ML 20 ML VIAL (for RAD MRI) IV ONE (11:58)
== END 2016-10-27 11:31 | disposition home or self-care (01) ==
LOC: NEPE 06:59
DX: G43.009 Migraine without aura, not intractable, without status migrainosus (principal); F14.10 Cocaine abuse, uncomplicated; M19.90 Unspecified osteoarthritis, unspecified site; F31.9 Bipolar disorder, unspecified; F41.8 Other specified anxiety disorders; I25.2 Old myocardial infarction; I10 Essential (primary) hypertension; E78.00 Pure hypercholesterolemia, unspecified; Z86.718 Personal history of other venous thrombosis and embolism; F17.210 Nicotine dependence, cigarettes, uncomplicated; Z79.82 Long term (current) use of aspirin
CPT/HCPCS: 70544; 70548; 70553; 72156; 80053; 85025; 96374; 96375; 99284; A9579; J1170; J2405

== ENCOUNTER 2016-11-16 21:35 | Emergency (ER) | payer MEDICARE, OTHER ==
[~2016-11-16] VITALS: Ht 167.6 cm; Wt 78.0 kg
[~2016-11-16 21:35] MED LIST changes: +NAPR500T PO
[2016-11-16 21:36] VITALS: BP 128/80; PULSE 73; RESP 14; TEMP 97.6; O2SAT 100
--- NOTE | 2016-11-16 23:52 | PD ---
HPI Chief Complaint: Suicide Ideation/Attempt Time Seen by Provider: 23:14 Travel History International Travel<30 days: No Contact w/Intl Traveler<30days: No Traveled to known affect area: No History of Present Illness HPI Patient's 51-year-old male with a history of major depressive disorder on Cymbalta presents emergency department for suicidal ideation and possible suicide attempt. Patient states that he's been feeling down and depressed lately. He usually gets his Cymbalta from primary care physician who recommends that he sees psychiatrist. He went [employer] today was referred here for "insurance reasons. Patient also states that he walked out in the traffic trying to kill himself today and "I don't know how the driver merchandiser missed me but I wish they didn't." Patient has complaints of chronic neck pain but no change from baseline. Denies any acute chest pain about pain shortness of breath shortly pain rash trauma. PFSH Past Medical History Hx Anticoagulant Therapy: Yes (ASA) Arthritis: Yes Asthma: No Autoimmune Disease: No Blood Disorders: No Bipolar Disorder: Yes Anxiety: Yes Depression: Yes Heart Rhythm Problems: No Cancer: No Cardiac Catheterization: Yes (2001) Cardiovascular Problems: Yes (HTN) High Cholesterol: Yes Chemotherapy: No Chest Pain: Yes Congestive Heart Failure: Yes (borderline) COPD: No Cerebrovascular Accident: No Diabetes: No Diminished Hearing: Yes (OCCASIONAL DIZZINESS FROM AN OLD EAR INJURY) Deep Vein Thrombosis: Yes Endocrine: No Gastrointestinal Disorders: Yes (Hepatitis B ) GERD: Yes Genitourinary: No Headaches: No Hepatitis: Yes (TYPE B) Hiatal Hernia: No Heparin Induced Thrombocytopen: No Herniated Disk: Yes Hypertension: Yes Immune Disorder: No Implanted Vascular Access Dvce: No Musculoskeletal: Yes (athritis) Neurologic: Yes (TIA ) Psychiatric: Yes Reproductive: No Respiratory: No Immunizations Current: Yes Migraines: No Myocardial Infarction: Yes Radiation Therapy: No Seizures: Yes (2005 RELATED TO WITHDRAWAL FROM BENZOS) Sleep Apnea: No Thyroid Disease: No Ulcer: No Tetanus Vaccination: < 5 Years Influenza Vaccination: Yes Past Surgical History Abdominal Surgery: No Appendectomy: Yes Cardiac Surgery: No Coronary Artery Bypass Graft: No Ear Surgery: No Endocrine Surgery: No Eye Surgery: No Genitourinary Surgery: No Neurologic Surgery: Yes Oral Surgery: No Thoracic Surgery: No Tonsillectomy: Yes Other Surgery: Yes (steroid injections for pain related to lower back) Family History Family Myocardial Infarction: Yes (mother had [place]) Social History Alcohol Use: Yes (PT STATES " ON OCCASION" ) Tobacco Use: Yes (1/2 PPD) Substance Use: No ("ALOT TONIGHT "COCINE ) Allergies-Medications (Allergen,Severity, Reaction): Coded Allergies: Penicillin (Verified Allergy, Severe, RASH, 11/16/16) Reported Meds & Prescriptions Reported Meds & Active Scripts Active Reported Aspir-81 (Aspirin) [address] (Duloxetine HCl) 60 Mg Capdr 60 Mg PO BID Lopressor (Metoprolol Tartrate) 50 Mg Tab 50 Mg PO TID Morphine Sulfate CR (Morphine Sulfate) 15 Mg Tab 15 Mg PO BID Review of Systems Except as stated in HPI: all other systems reviewed are Neg Physical Exam Narrative GENERAL: Well-developed well-nourished no apparent distress SKIN: Warm and dry. HEAD: Atraumatic. Normocephalic. EYES: Pupils equal and round. No scleral icterus. No injection or drainage. ENT: No nasal bleeding or discharge. Mucous membranes pink and moist. NECK: Trachea midline. No JVD. CARDIOVASCULAR: Regular rate and rhythm. No murmur appreciated. RESPIRATORY: No accessory muscle use. Clear to auscultation. Breath sounds equal bilaterally. GASTROINTESTINAL: Abdomen soft, non-tender, nondistended. Hepatic and splenic margins not palpable. MUSCULOSKELETAL: No obvious deformities. No clubbing. No cyanosis. No edema. NEUROLOGICAL: Awake and alert. No obvious cranial nerve deficits. Motor grossly within normal limits. Normal speech. PSYCHIATRIC: Flat affect with depressed mood. Endorses suicidal ideation denies homicidal ideation. Denies audiovisual hallucinations. Data Data Last Documented VS Vital Signs Date Time Temp Pulse Resp B/P Pulse Ox O2 Delivery O2 Flow Rate FiO2 11/16/16 21:48 70 20 11/16/16 21:36 97.6 128/80 100 Room Air Orders Complete Blood Count With Diff (11/16/16 23:36) Comprehensive Metabolic Panel (11/16/16 23:36) Psych Screen (11/16/16 23:36) Alcohol (Ethanol) (11/17/16 00:31) Drug Screen, Random Urine (11/17/16 00:31) Labs Laboratory Tests Test 11/16/16 23:35 White Blood Count 7.9 TH/MM3 Red Blood Count 4.58 MIL/MM3 Hemoglobin 14.3 GM/DL Hematocrit 41.5 % Mean Corpuscular Volume 90.4 FL Mean Corpuscular Hemoglobin 31.1 PG Mean Corpuscular Hemoglobin 34.4 % Concent Red Cell Distribution Width 13.4 % Platelet Count 230 TH/MM3 Mean Platelet Volume 8.0 FL Neutrophils (%) (Auto) 47.8 % Lymphocytes (%) (Auto) 36.3 % Monocytes (%) (Auto) 9.3 % Eosinophils (%) (Auto) 6.2 % Basophils (%) (Auto) 0.4 % Neutrophils # (Auto) 3.8 TH/MM3 Lymphocytes # (Auto) 2.9 TH/MM3 Monocytes # (Auto) 0.7 TH/MM3 Eosinophils # (Auto) 0.5 TH/MM3 Basophils # (Auto) 0.0 TH/MM3 CBC Comment DIFF FINAL Differential Comment Sodium Level 140 MEQ/L Potassium Level 3.5 MEQ/L Chloride Level 103 MEQ/L Carbon Dioxide Level 29.9 MEQ/L Anion Gap 7 MEQ/L Blood Urea Nitrogen 8 MG/DL Creatinine 1.22 MG/DL Estimat Glomerular Filtration 62 ML/MIN Rate Random Glucose 88 MG/DL Calcium Level 8.6 MG/DL Total Bilirubin 0.3 MG/DL Aspartate Amino Transf 20 U/L (AST/SGOT) Alanine Aminotransferase 33 U/L (ALT/SGPT) Alkaline Phosphatase 44 U/L Total Protein 7.3 GM/DL Albumin 4.0 GM/DL MDM Medical Decision Making Medical Screen Exam Complete: Yes Emergency Medical Condition: Yes Differential Diagnosis Suicidal ideation, suicidal attempt, major depressive disorder, substance abuse. Narrative Course Patient 51-year-old male presents emergency department for evaluation of suicidal ideation and possible suicide attempt earlier today. Patient states he is been taking his Cymbalta but has been feeling down and depressed and walked out into traffic today and states "I don't know how they missed me but I wish he didn't" referring to the driver merchandiser the car. Patient has no physical complaints other than his chronic back pain. He appears well medically stable for psychiatric evaluation and disposition. Placed under [facility] act by me. Diagnosis Primary Impression: Depression (emotion) Qualified Code: F33.2 - Severe episode of recurrent major depressive disorder , without psychotic features Additional Impression: Suicide attempt Condition: Stable Arik Pérez MD Nov 16, 2016 23:52
[2016-11-16 23:53] LABS: AUTOMATED NEUTROPHIL # 3.8 TH/MM3 (1.8-7.7); BASOPHIL % 0.4 % (0.0-2.0); EOSINOPHIL # 0.5 TH/MM3 (0-0.4); EOSINOPHIL % 6.2 % (0.0-4.0); HEMATOCRIT 41.5 % (39.0-51.0); HEMO FLAGS DIFF FINAL; LYMPH % 36.3 % (9.0-44.0); LYMPHOCYTE # 2.9 TH/MM3 (1.0-4.8); MEAN CELL VOLUME 90.4 FL (80.0-100.0); MEAN CORPUSCULAR HEMOGLOBIN 31.1 PG (27.0-34.0); MEAN CORPUSCULAR HGB CONC 34.4 % (32.0-36.0); MONO % 9.3 % (0.0-8.0); NEUT % 47.8 % (16.0-70.0); PLATELET COUNT 230 TH/MM3 (150-450); RED BLOOD COUNT 4.58 MIL/MM3 (4.50-5.90); RED CELL DISTRIBUTION WIDTH 13.4 % (11.6-17.2); WHITE BLOOD COUNT 7.9 TH/MM3 (4.0-11.0)
[2016-11-17 00:02] LABS: ANION GAP 7 MEQ/L (5-15); AST (GOT) 20 U/L (15-37); BICARBONATE 29.9 MEQ/L (21.0-32.0); BLOOD UREA NITROGEN 8 MG/DL (7-18); CHLORIDE 103 MEQ/L (98-107); GLOMERULAR FILTRATION RATE 62 ML/MIN (>89); POTASSIUM 3.5 MEQ/L (3.5-5.1); SODIUM (NA) 140 MEQ/L (136-145)
[2016-11-17 00:06] LABS: ALKALINE PHOSPHATASE 44 U/L (45-117); ALT (GPT) 33 U/L (12-78); TOTAL BILIRUBIN ADULT 0.3 MG/DL (0.2-1.0)
[2016-11-17 01:30] VITALS: BP 147/83; PULSE 72; RESP 20; O2SAT 96
[2016-11-17 02:32] LABS: AMPHETAMINE, URINE NEG (NEG); BARBITURATES, URINE NEG (NEG); COCAINE, URINE POS (NEG)
[2016-11-17 04:55] VITALS: BP 138/81; PULSE 73; RESP 20; O2SAT 97
[2016-11-17 08:07] VITALS: BP 142/88; PULSE 77; RESP 16; O2SAT 97
--- NOTE | 2016-11-17 12:23 | PD ---
History of Present Illness Chief Complaint: Suicide Ideation/Attempt Time Seen by Provider: 12:00 Travel History International Travel<30 Days: No Contact w/Intl Traveler<30days: No Known affected area: No Legal Status Legal Status: Involuntary [place] Act Signed By: DR. Darren Ty Act Comment: CERTIFICATE OF PROFESSIONAL INITIATING INVOLUNTARY EXAMINATION11/16/16@[id number] History of Present Illness: This is a 51-year-old male with a multiyear history of alcohol abuse, Ty acted last night by the emergency department physician for "suicidal behavior". Patient reportedly told the doctor he walked into traffic and wished he had been struck and killed. At the present time, the patient is not claiming to be suicidal or homicidal. He does state he was seen at [facility] for alcohol detox and rehabilitation yesterday but sent to [place] for medical clearance. At this time the patient is no longer intoxicated. He is not a candidate for detox and rehabilitation at this facility because we are not licensed for same. Furthermore, the Yt act was lifted because it does not apply to someone whose primary disorders alcohol abuse. Finally, the patient is homeless and this adds to his symptoms of depression. His Ty act was lifted and he was given a referral and bus passes to [facility]. PFSH Past Medical History Hx Anticoagulant Therapy: Yes (ASA) Arthritis: Yes Asthma: No Autoimmune Disease: No Blood Disorders: No Bipolar Disorder: Yes Anxiety: Yes Depression: Yes Heart Rhythm Problems: No Cancer: No Cardiac Catheterization: Yes (2001) Cardiovascular Problems: Yes (HTN) High Cholesterol: Yes Chemotherapy: No Chest Pain: Yes Congestive Heart Failure: Yes (borderline) COPD: No Cerebrovascular Accident: No Diabetes: No Diminished Hearing: Yes (OCCASIONAL DIZZINESS FROM AN OLD EAR INJURY) Deep Vein Thrombosis: Yes Endocrine: No Gastrointestinal Disorders: Yes (Hepatitis B ) GERD: Yes Genitourinary: No Headaches: No Hepatitis: Yes (TYPE B) Hiatal Hernia: No Heparin Induced Thrombocytopen: No Herniated Disk: Yes Hypertension: Yes Immune Disorder: No Implanted Vascular Access Dvce: No Musculoskeletal: Yes (athritis) Neurologic: Yes (TIA ) Psychiatric: Yes Reproductive: No Respiratory: No Immunizations Current: Yes Migraines: No Myocardial Infarction: Yes Radiation Therapy: No Seizures: Yes (2005 RELATED TO WITHDRAWAL FROM BENZOS) Sleep Apnea: No Thyroid Disease: No Ulcer: No Tetanus Vaccination: < 5 Years Influenza Vaccination: Yes Past Surgical History Abdominal Surgery: No Appendectomy: Yes Cardiac Surgery: No Coronary Artery Bypass Graft: No Ear Surgery: No Endocrine Surgery: No Eye Surgery: No Genitourinary Surgery: No Neurologic Surgery: Yes Oral Surgery: No Thoracic Surgery: No Tonsillectomy: Yes Other Surgery: Yes (steroid injections for pain related to lower back) Psychiatric History Psychiatric History Hx Psychiatric Treatment: REPORTS A LONG HX OF ANXIETY. NO PREVIOUS INPATIENT TREATMENT UNTIL SEP 2015. History of Inpatient Treatment: Yes Guns or firearms in home: No Social History Hx Alcohol Use: Yes (PT STATES " ON OCCASION" ) Hx Tobacco Use: Yes (09/26 PPD) Hx Substance Use: No ("ALOT TONIGHT "COCINE ) Substance Use Type: Crack, Marijuana, Prescription Medications, Synth Opiates- Pain Pills Other Substances Used: ADMITS TO USING CRACK TWICE A YR AND GOES LONG PERIODS WITHOUT SINCE HIS 18 Hx of Substance Use Treatment: No Allergies-Medications (Allergen,Severity, Reaction): Coded Allergies: Penicillin (Verified Allergy, Severe, RASH, 11/16/16) Reported Meds & Prescriptions Reported Meds & Active Scripts Active Reported Aspir-81 (Aspirin) [address] (Duloxetine HCl) 60 Mg Capdr 60 Mg PO BID Lopressor (Metoprolol Tartrate) 50 Mg Tab 50 Mg PO TID Morphine Sulfate CR (Morphine Sulfate) 15 Mg Tab 15 Mg PO BID Review of Systems ROS Limitations: Clinical Condition Except as stated in HPI: all other systems reviewed are Neg Exam Alert: Yes [place]: Person, Place, Date, Situation Mood: Calm Affect: Restricted Speech: Clear, Logical Eye Contact: Normal Memory Intact: Immediate, Recent, Remote Delusions: No Insight/Judgement Insight and judgment are deemed impaired but adequate and probably baseline. [facility] Medical Decision Making Medical Record Reviewed: Yes Assessment/Plan Patient's Ty act is being lifted and he is being referred to [facility] for alcohol detox and rehabilitation. Orders Complete Blood Count With Diff (11/16/16 23:36) Comprehensive Metabolic Panel (11/16/16 23:36) Psych Screen (11/16/16 23:36) Alcohol (Ethanol) (11/17/16 00:31) Drug Screen, Random Urine (11/17/16 00:31) Diet Regular Basic (11/17/16 Breakfast) Results Vital Signs Date Time Temp Pulse Resp B/P Pulse Ox O2 Delivery O2 Flow Rate FiO2 11/17/16 08:07 77 16 142/88 97 Room Air 11/17/16 04:55 73 20 138/81 97 Room Air 11/17/16 01:30 72 20 147/83 96 Room Air 11/16/16 21:48 70 20 11/16/16 21:36 97.6 73 14 128/80 100 Room Air Laboratory Tests Test 11/16/16 11/17/16 23:35 02:08 White Blood Count 7.9 Red Blood Count 4.58 Hemoglobin 14.3 Hematocrit 41.5 Mean Corpuscular Volume 90.4 Mean Corpuscular Hemoglobin 31.1 Mean Corpuscular Hemoglobin 34.4 Concent Red Cell Distribution Width 13.4 Platelet Count 230 Mean Platelet Volume 8.0 Neutrophils (%) (Auto) 47.8 Lymphocytes (%) (Auto) 36.3 Monocytes (%) (Auto) 9.3 Eosinophils (%) (Auto) 6.2 Basophils (%) (Auto) 0.4 Neutrophils # (Auto) 3.8 Lymphocytes # (Auto) 2.9 Monocytes # (Auto) 0.7 Eosinophils # (Auto) 0.5 Basophils # (Auto) 0.0 CBC Comment DIFF FINAL Differential Comment Sodium Level 140 Potassium Level 3.5 Chloride Level 103 Carbon Dioxide Level 29.9 Anion Gap 7 Blood Urea Nitrogen 8 Creatinine 1.22 Estimat Glomerular Filtration 62 Rate Random Glucose 88 Calcium Level 8.6 Total Bilirubin 0.3 Aspartate Amino Transf 20 (AST/SGOT) Alanine Aminotransferase 33 (ALT/SGPT) Alkaline Phosphatase 44 Total Protein 7.3 Albumin 4.0 Ethyl Alcohol Level LESS THAN 3 Urine Opiates Screen NEG Urine Barbiturates Screen NEG Urine Amphetamines Screen NEG Urine Benzodiazepines Screen NEG Urine Cocaine Screen POS Urine Cannabinoids Screen NEG Diagnosis Primary Impression: Alcohol abuse Departure Forms: Tests/Procedures Patient Instructions: General Instructions, Depression (ED) Disposition: 01 DISCHARGE HOME Condition: Stable Robert Olvera MD Nov 17, 2016 12:23
== END 2016-11-17 12:52 | disposition home or self-care (01) ==
LOC: NEPA 21:35
DX: F33.9 Major depressive disorder, recurrent, unspecified (principal); F10.10 Alcohol abuse, uncomplicated; F17.210 Nicotine dependence, cigarettes, uncomplicated; I10 Essential (primary) hypertension; Z86.718 Personal history of other venous thrombosis and embolism; Z86.73 Personal history of transient ischemic attack (TIA), and cerebral infarction without residual deficits; Z79.82 Long term (current) use of aspirin
CPT/HCPCS: 80053; 80307; 80320; 85025; 99284

== ENCOUNTER 2016-12-01 03:21 | Emergency (ER) | payer MEDICARE, OTHER ==
[~2016-12-01] VITALS: Ht 170.2 cm; Wt 82.0 kg
[~2016-12-01 03:21] MED LIST changes: -NAPR500T PO
[2016-12-01 03:26] VITALS: BP 129/69; PULSE 82; RESP 18; TEMP 98.4; O2SAT 96
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
[2016-12-01 03:55] VITALS: O2SAT 95; O2SAT 98
[2016-12-01] MEDS ORDERED: PROPOFOL 200 MG/20 ML AMP IV ONE (04:00)
[2016-12-01] MEDS ORDERED: SODIUM CHLOR 0.9% 1000 ML INJ 1,000 ML IV ONE (04:00)
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
[2016-12-01] MEDS ORDERED: IBUP-232 PO (04:21)
[2016-12-01] MEDS ORDERED: KETOROLAC TROMETHAMINE 30 MG/ML (IVP) VIAL IV PUSH ONE (04:30)
--- NOTE | 2016-12-01 05:13 | RADRPT ---
EXAM DATE/TIME: 12/01/2016 04:06 [facility] COMPARISON: SHOULDER RIGHT LTD (2VWS), December 01, 2016, 3:27. INDICATIONS : Post reduction. MEDICAL HISTORY : None. SURGICAL HISTORY : None. ENCOUNTER: Subsequent ACUITY: 1 day PAIN SCORE: Non-responsive. LOCATION: Right scapular FINDINGS: Two view examination of the right shoulder demonstrates normal alignment of the glenohumeral articula tion. Arm is no longer held in abduction suggesting interval reduction of a prior dislocation. Questi onable disruption of the anterior aspect of the glenoid. CONCLUSION: Questionable glenoid fracture. Alfredo Haile MD on December 01, 2016 at 5:04 Board Certified Radiologist. This report was verified electronically.
== END 2016-12-01 05:44 | disposition home or self-care (01) ==
LOC: NEPE 03:21
DX: S43.004A Unspecified dislocation of right shoulder joint, initial encounter (principal); F10.120 Alcohol abuse with intoxication, uncomplicated; E78.00 Pure hypercholesterolemia, unspecified; I10 Essential (primary) hypertension; F17.210 Nicotine dependence, cigarettes, uncomplicated; F14.90 Cocaine use, unspecified, uncomplicated; Z79.01 Long term (current) use of anticoagulants; G89.29 Other chronic pain; Y09 Assault by unspecified means; Y04.0XXA Assault by unarmed brawl or fight, initial encounter; W01.10XA Fall on same level from slipping, tripping and stumbling with subsequent striking against unspecified object, initial encounter
CPT/HCPCS: 23650; 73030; 80307; 96374; 99152; 99153; 99284; J1885; J7030

== ENCOUNTER 2017-03-11 12:27 | Emergency (ER) | payer MEDICARE, OTHER ==
[~2017-03-11] VITALS: Ht 167.6 cm; Wt 85.0 kg
[~2017-03-11 12:27] MED LIST changes: +IBUP-232 PO
[2017-03-11 12:29] VITALS: BP 133/79; PULSE 74; RESP 20; TEMP 97.8; O2SAT 99
[2017-03-11] MEDS ORDERED: LORA-474 PO (13:03)
[2017-03-11] MEDS ORDERED: MORP1TAB24 PO (13:03)
[2017-03-11] MEDS ORDERED: ONDANSETRON HCL 4 MG/2 ML VIAL IV PUSH ONE (13:15)
[2017-03-11] MEDS ORDERED: KETOROLAC TROMETHAMINE 30 MG/ML (IVP) VIAL IV PUSH ONE (13:15)
[2017-03-11] MEDS ORDERED: MORPHINE SULFATE 4 MG/ML INJ IV PUSH ONE (13:15)
--- NOTE | 2017-03-11 13:17 | PD ---
HPI Chief Complaint: Pain: Acute or Chronic Time Seen by Provider: 12:54 Travel History International Travel<30 days: No Contact w/Intl Traveler<30days: No Traveled to known affect area: No History of Present Illness HPI The patient is a 51-year-old male who presents to the emergency department for neck pain that radiates into the right upper extremity. The patient states he has a history of chronic neck pain and right shoulder pain which is progressively worsened over the last several weeks. Pain is worse with movement, occasionally is present at rest, but is exacerbated by lifting and certain types of movement. The pain starts in the neck and then radiates into the right shoulder down the right arm, he denies any numbness or tingling of the right upper extremity and notes minimal weakness. The patient does have a previous history of discitis in the lumbar region secondary to previous IVDA, however, has not used drugs intravenously since his previous discitis in 2015. He denies any fever, chills, or sweats. He denies any associated chest pain, short of breath, nausea, vomiting, or abdominal pain. PFSH Past Medical History Hx Anticoagulant Therapy: Yes (325 ASPIRIN DAILY LAST TAKEN 03/11) Arthritis: Yes Asthma: No Autoimmune Disease: No Blood Disorders: No Bipolar Disorder: Yes Anxiety: Yes Depression: Yes Heart Rhythm Problems: No Cancer: No Cardiac Catheterization: Yes (2001) Cardiovascular Problems: Yes (CATH 2001) High Cholesterol: Yes Chemotherapy: No Chest Pain: Yes Congestive Heart Failure: Yes (borderline) COPD: No Cerebrovascular Accident: No Diabetes: No Diminished Hearing: Yes (OCCASIONAL DIZZINESS FROM AN OLD EAR INJURY) Deep Vein Thrombosis: Yes Endocrine: No Gastrointestinal Disorders: Yes (Hepatitis B ) GERD: Yes Genitourinary: No Headaches: No Hepatitis: Yes (TYPE B) Hiatal Hernia: No Heparin Induced Thrombocytopen: No Herniated Disk: Yes Hypertension: Yes Immune Disorder: No Implanted Vascular Access Dvce: No Musculoskeletal: Yes (athritis) Neurologic: Yes (TIA ) Psychiatric: Yes Reproductive: No Respiratory: No Immunizations Current: Yes Migraines: No Myocardial Infarction: Yes Radiation Therapy: No Seizures: Yes (2005 RELATED TO WITHDRAWAL FROM BENZOS) Sleep Apnea: No Thyroid Disease: No Ulcer: No Past Surgical History Abdominal Surgery: No Appendectomy: Yes Cardiac Surgery: No Coronary Artery Bypass Graft: No Ear Surgery: No Endocrine Surgery: No Eye Surgery: No Genitourinary Surgery: No Neurologic Surgery: Yes Oral Surgery: No Thoracic Surgery: No Tonsillectomy: Yes Other Surgery: Yes (steroid injections for pain related to lower back) Family History Family Myocardial Infarction: Yes (mother had AR) Social History Alcohol Use: Yes (PT STATES " ON OCCASION" ) Tobacco Use: No (quit 03/11) Substance Use: No (hx last used "months ago" ) Allergies-Medications (Allergen,Severity, Reaction): Coded Allergies: Penicillin (Verified Allergy, Severe, RASH, 03/11/17) Reported Meds & Prescriptions Reported Meds & Active Scripts Active Reported Ativan (Lorazepam) 1 Mg Tab 1 Mg PO BID PRN Morphine ER (Morphine Sulfate) 15 Mg Tab 15 Mg PO DAILY Aspir-81 (Aspirin) [address] (Duloxetine HCl) 60 Mg Capdr 60 Mg PO BID Lopressor (Metoprolol Tartrate) 50 Mg Tab 50 Mg PO TID Review of Systems Except as stated in HPI: all other systems reviewed are Neg General / Constitutional: No: Fever HENT: Positive: Neck Pain, No: Lightheadedness Cardiovascular: No: Chest Pain or Discomfort Respiratory: No: Shortness of Breath Gastrointestinal: No: Nausea, Vomiting, Abdominal Pain Musculoskeletal: Positive: Myalgias, Arthralgias, Weakness, Pain, No: Limited ROM, Edema Neurologic: Positive: Weakness, No: Paresthesia, Sensory Disturbance Physical Exam Narrative GENERAL: Awake, alert, pleasant 51-year-old male who appears his stated age and is in no acute respiratory distress. SKIN: Focused skin assessment warm/dry. HEAD: Atraumatic. Normocephalic. EYES: No injection or drainage. ENT: No nasal bleeding or discharge. Mucous membranes pink and moist. NECK: Trachea midline. No JVD. No tenderness of the cervical vertebrae or paravertebral muscles. CARDIOVASCULAR: Regular rate and rhythm. No murmur appreciated. RESPIRATORY: No accessory muscle use. Clear to auscultation. Breath sounds equal bilaterally. GASTROINTESTINAL: Abdomen soft, non-tender, nondistended. No rebound tenderness. MUSCULOSKELETAL: No obvious deformities. No clubbing. No cyanosis. No edema. Strength with flexion and extension of the wrist is 5 out of 5. Intrinsic hand muscles are intact. Flexion extension of the right elbow is 5 out of 5. Extension her right shoulder is 5 out of 5. Abduction/adduction of the right shoulder is 5 out of 5. External/internal rotation of the shoulder is 5/5. Positive right radial pulse. NEUROLOGICAL: Awake and alert. No obvious cranial nerve deficits. Motor grossly within normal limits. Normal speech. Sensation is intact to the radial , ulnar, and median distribution of the right upper extremity. PSYCHIATRIC: Appropriate mood and affect; insight and judgment normal. Data Data Last Documented VS Vital Signs Date Time Temp Pulse Resp B/P Pulse Ox O2 Delivery O2 Flow Rate FiO2 03/11/17 12:56 80 16 03/11/17 12:29 97.8 133/[address] Cerv Spine W/O Contrast (03/11/17 ) Morphine Inj (Morphine Inj) (03/11/17 13:15) Ondansetron Inj (Zofran Inj) (03/11/17 13:15) Ketorolac Inj (Toradol Inj) (03/11/17 13:15) Complete Blood Count With Diff (03/11/17 13:05) Westergren Sedimentation Rate (03/11/17 13:05) C-Reactive Protein (Crp) (03/11/17 13:05) Basic Metabolic Panel (Bmp) (03/11/17 13:05) Labs Laboratory Tests Test 03/11/17 13:00 White Blood Count 7.5 TH/MM3 Red Blood Count 4.53 MIL/MM3 Hemoglobin 14.0 GM/DL Hematocrit 42.1 % Mean Corpuscular Volume 92.9 FL Mean Corpuscular Hemoglobin 30.9 PG Mean Corpuscular Hemoglobin 33.2 % Concent Red Cell Distribution Width 13.4 % Platelet Count 243 TH/MM3 Mean Platelet Volume 8.3 FL Neutrophils (%) (Auto) 53.3 % Lymphocytes (%) (Auto) 29.3 % Monocytes (%) (Auto) 11.3 % Eosinophils (%) (Auto) 5.7 % Basophils (%) (Auto) 0.4 % Neutrophils # (Auto) 4.0 TH/MM3 Lymphocytes # (Auto) 2.2 TH/MM3 Monocytes # (Auto) 0.8 TH/MM3 Eosinophils # (Auto) 0.4 TH/MM3 Basophils # (Auto) 0.0 TH/MM3 CBC Comment DIFF FINAL Differential Comment Erythrocyte Sedimentation Rate 1 mm/hr Sodium Level 140 MEQ/L Potassium Level 4.1 MEQ/L Chloride Level 106 MEQ/L Carbon Dioxide Level 29.2 MEQ/L Anion Gap 5 MEQ/L Blood Urea Nitrogen 11 MG/DL Creatinine 1.15 MG/DL Estimat Glomerular Filtration 67 ML/MIN Rate Random Glucose 82 MG/DL Calcium Level 8.4 MG/DL C-Reactive Protein LESS THAN 0.29 MG/DL MDM Medical Decision Making Medical Screen Exam Complete: Yes Emergency Medical Condition: Yes Medical Record Reviewed: Yes Interpretation(s) Laboratory Tests Test 03/11/17 13:00 White Blood Count 7.5 TH/MM3 Red Blood Count 4.53 MIL/MM3 Hemoglobin 14.0 GM/DL Hematocrit 42.1 % Mean Corpuscular Volume 92.9 FL Mean Corpuscular Hemoglobin 30.9 PG Mean Corpuscular Hemoglobin 33.2 % Concent Red Cell Distribution Width 13.4 % Platelet Count 243 TH/MM3 Mean Platelet Volume 8.3 FL Neutrophils (%) (Auto) 53.3 % Lymphocytes (%) (Auto) 29.3 % Monocytes (%) (Auto) 11.3 % Eosinophils (%) (Auto) 5.7 % Basophils (%) (Auto) 0.4 % Neutrophils # (Auto) 4.0 TH/MM3 Lymphocytes # (Auto) 2.2 TH/MM3 Monocytes # (Auto) 0.8 TH/MM3 Eosinophils # (Auto) 0.4 TH/MM3 Basophils # (Auto) 0.0 TH/MM3 CBC Comment DIFF FINAL Differential Comment Erythrocyte Sedimentation Rate 1 mm/hr Sodium Level 140 MEQ/L Potassium Level 4.1 MEQ/L Chloride Level 106 MEQ/L Carbon Dioxide Level 29.2 MEQ/L Anion Gap 5 MEQ/L Blood Urea Nitrogen 11 MG/DL Creatinine 1.15 MG/DL Estimat Glomerular Filtration 67 ML/MIN Rate Random Glucose 82 MG/DL Calcium Level 8.4 MG/DL C-Reactive Protein LESS THAN 0.29 MG/DL Last Impressions Cervical Spine CT 03/11/17 0000 Signed Impressions: Service Date/Time: Saturday, March 11, 2017 13:43 - CONCLUSION: Mild degenerative changes of the cervical spine without significant change from the prior examination. No canal stenosis or neural foraminal narrowing is seen. Edilson Polo MD Differential Diagnosis Differential diagnosis includes cervical radiculopathy, discitis, myelopathy, rotator cuff injury, strain, sprain, epidural abscess. Narrative Course IV was established, labs are drawn and sent, the patient was placed on cardiac telemetry monitoring and continuous pulse oximetry monitoring. CRP and sedimentation rate were sent to lab. The patient was administered morphine, Zofran, Toradol, and IV fluids. CT of the cervical spine was ordered. The patient's sedimentation rate is 1 and CRP is less than 0.29, therefore, I doubt discitis or epidural abscess with normal inflammatory markers and afebrile with normal white count. CT of the cervical spine reveals degenerative changes, no significant stenosis. The patient will need outpatient follow-up with orthopedics and may benefit from MRI of the cervical spine and/or orthopedic consultation regards to the right shoulder pain. The patient stable for outpatient follow-up and will be provided a copy of his labs and CT results at discharge. Diagnosis Primary Impression: Neck pain Additional Impression: Cervical radiculopathy Patient Instructions: General Instructions Additional Instructions: Medications as directed. Follow-up with your primary physician. You may benefit from outpatient MRI of the cervical spine and/or orthopedic follow-up. Return if symptoms worsen or progress. Please provide the patient a copy of his CT results and lab results at discharge. Med/Other Pt SpecificInfo: Prescription(s) given Scripts Orphenadrine ER 12 HR (Orphenadrine CR)100 Mg [id number] Mg PO Q12HR #10 TAB Ref 0 Prov:Liban Angelo MD 03/11/17 Hydrocodone-Acetaminophen ([place])5-325 mg Tab1 Tab PO Q6H PRN (PAIN) #20 TAB Ref 0 Prov:Liban Angelo MD 03/11/17 Ibuprofen 600 Mg [id number] Mg PO Q6H PRN (Pain/Inflammation) #20 TAB Ref 0 Prov:Liban Angelo MD 03/11/17 Disposition: 01 DISCHARGE HOME Condition: Stable Liban Angelo MD Mar 11, 2017 13:17
[2017-03-11 13:21] LABS: BASOPHIL % 0.4 % (0.0-2.0); EOSINOPHIL # 0.4 TH/MM3 (0-0.4); EOSINOPHIL % 5.7 % (0.0-4.0); HEMATOCRIT 42.1 % (39.0-51.0); HEMO FLAGS DIFF FINAL; LYMPH % 29.3 % (9.0-44.0); LYMPHOCYTE # 2.2 TH/MM3 (1.0-4.8); MEAN CELL VOLUME 92.9 FL (80.0-100.0); MEAN CORPUSCULAR HEMOGLOBIN 30.9 PG (27.0-34.0); MEAN CORPUSCULAR HGB CONC 33.2 % (32.0-36.0); MONO % 11.3 % (0.0-8.0); NEUT % 53.3 % (16.0-70.0); PLATELET COUNT 243 TH/MM3 (150-450); RED BLOOD COUNT 4.53 MIL/MM3 (4.50-5.90); RED CELL DISTRIBUTION WIDTH 13.4 % (11.6-17.2); WHITE BLOOD COUNT 7.5 TH/MM3 (4.0-11.0)
[2017-03-11 13:45] LABS: ANION GAP 5 MEQ/L (5-15); BICARBONATE 29.2 MEQ/L (21.0-32.0); BLOOD UREA NITROGEN 11 MG/DL (7-18); CHLORIDE 106 MEQ/L (98-107); GLOMERULAR FILTRATION RATE 67 ML/MIN (>89); POTASSIUM 4.1 MEQ/L (3.5-5.1); SODIUM (NA) 140 MEQ/L (136-145)
--- NOTE | 2017-03-11 14:14 | RADRPT ---
EXAM DATE/TIME: 03/11/2017 13:43 [facility] COMPARISON: CT CERVICAL SPINE W/O CONTRAST, October 27, 2015, 8:19. INDICATIONS : Chronic neck pain. RADIATION DOSE: 22.22 CTDIvol (mGy) MEDICAL HISTORY : Hypertension. Hepatitis C. SURGICAL HISTORY : None. ENCOUNTER: Initial ACUITY: 1 day PAIN SCALE: 4/10 LOCATION: Bilateral neck TECHNIQUE: Volumetric scanning of the cervical spine was performed. Multiplanar reconstructions in the sagittal, coronal and oblique axial planes were performed. Using automated exposure control and adjustment o f the mA and/or kV according to patient size, radiation dose was kept as low as reasonably achievable to obtain optimal diagnostic quality images. FINDINGS: VERTEBRAE: No fracture is identified. ALIGNMENT: No anterolisthesis or retrolisthesis. The craniocervical junction and C1-C2 level demonstrate no abnormality. C2-C3: No disc herniation, canal stenosis, or neural foraminal stenosis. C3-C4: No disc herniation. There are small bilateral uncovertebral osteophytes. No significant spinal canal stenosis or neural foraminal stenosis is present. C4-C5: No disc herniation, canal stenosis, or neural foraminal stenosis is present. There is a small right u ncovertebral osteophyte. C5-C6: There is decreased disc height with small diffuse posterior disc osteophyte complex, largest in a lef t paracentral location. There is no canal stenosis or neural foraminal narrowing appreciated. Finding s at this level are stable. C6-C7: No disc herniation, canal stenosis, or neural foraminal stenosis. C7-T1: No disc herniation, canal stenosis, or neural foraminal stenosis. The visualized paraspinous structures demonstrate no acute finding. CONCLUSION: Mild degenerative changes of the cervical spine without significant change from the prior examination . No canal stenosis or neural foraminal narrowing is seen. Edilson Polo MD on March 11, 2017 at 14:07 Board Certified Radiologist. This report was verified electronically.
[2017-03-11] MEDS ORDERED: ORPH100T99 PO (14:27)
[2017-03-11] MEDS ORDERED: IBUP-232 PO (14:27)
[2017-03-11] MEDS ORDERED: NORC5TAB PO (14:27)
== END 2017-03-11 14:57 | disposition home or self-care (01) ==
LOC: NEPE 13:40
DX: M54.2 Cervicalgia (principal); M54.12 Radiculopathy, cervical region; G89.29 Other chronic pain; M79.1 Myalgia
CPT/HCPCS: 72125; 80048; 85025; 85652; 86140; 96374; 96375; 99285; J1885; J2270; J2405

== ENCOUNTER 2017-04-24 14:56 | Emergency (ER) | payer MEDICARE, OTHER ==
[~2017-04-24] VITALS: Ht 167.6 cm; Wt 83.0 kg
[~2017-04-24 14:56] MED LIST changes: +LORA-474 PO; -MORP15TA73 PO; +MORP1TAB24 PO; +NORC5TAB PO; +ORPH100T99 PO
[2017-04-24 14:59] VITALS: BP 143/72; PULSE 101; RESP 15; TEMP 98; O2SAT 98
--- NOTE | 2017-04-24 15:06 | PD ---
Physical Exam Time Seen by Provider: 15:06 Narrative 51 y/o male with feelings of general weakness, lightheadedness for one week, questionable syncopal episodes as well. Vital signs reviewed. Seen at triage desk. Awaiting bed placement. Data Data Last Documented VS Vital Signs Date Time Temp Pulse Resp B/P Pulse Ox O2 Delivery O2 Flow Rate FiO2 04/24/17 14:59 98.0 101 15 143/72 98 MDM Medical Record Reviewed: Yes Supervised Visit with GEMA: Kwame Rojas Apr 24, 2017 15:06
[2017-04-24 16:56] VITALS: BP 139/81; PULSE 72; RESP 18; O2SAT 100
[2017-04-24] MEDS ORDERED: CYCL1TAB29 PO (16:56)
[2017-04-24] MEDS ORDERED: GI MED (16:56)
[2017-04-24] MEDS ORDERED: MSIR15 PO (16:56)
[2017-04-24] MEDS ORDERED: NITR1SUB3 SL (16:56)
[2017-04-24] MEDS ORDERED: ENAL10TA PO (16:56)
[2017-04-24] MEDS ORDERED: SODIUM CHLOR 0.9% 1000 ML INJ 1,000 ML IV SCH (17:02)
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
--- NOTE | 2017-04-24 17:35 | RADRPT ---
EXAM DATE/TIME: 04/24/2017 17:00 [facility] COMPARISON: CHEST SINGLE AP, June 11, 2016, 11:59. INDICATIONS : Syncope MEDICAL HISTORY : Cardiovascular disease. Hypertension. Hepatitis C. SURGICAL HISTORY : None. ENCOUNTER: Initial ACUITY: 2 days PAIN SCORE: 0/10 LOCATION: chest FINDINGS: The lungs are clear without infiltrate, nodule, or mass. There is no appreciable pleural effusion fo r technique. Heart and mediastinum are unremarkable. CONCLUSION: No acute cardiopulmonary disease. Alfredo Schwartz MD on April 24, 2017 at 17:33 Board Certified Radiologist. This report was verified electronically.
[2017-04-24 17:41] VITALS: O2SAT 100
[2017-04-24] MEDS ORDERED: MORPHINE SULFATE 4 MG/ML INJ IV PUSH ONE (17:45)
[2017-04-24] MEDS ORDERED: ONDANSETRON HCL 4 MG/2 ML VIAL IV PUSH ONE (17:45)
[2017-04-24 18:39] LABS: AUTOMATED NEUTROPHIL # 3.6 TH/MM3 (1.8-7.7); BASOPHIL % 0.5 % (0.0-2.0); EOSINOPHIL # 0.3 TH/MM3 (0-0.4); EOSINOPHIL % 4.7 % (0.0-4.0); HEMATOCRIT 35.9 % (39.0-51.0); HEMO FLAGS DIFF FINAL; LYMPH % 30.4 % (9.0-44.0); LYMPHOCYTE # 2.1 TH/MM3 (1.0-4.8); MEAN CORPUSCULAR HEMOGLOBIN 31.9 PG (27.0-34.0); MEAN CORPUSCULAR HGB CONC 34.4 % (32.0-36.0); MONO % 12.6 % (0.0-8.0); NEUT % 51.8 % (16.0-70.0); PLATELET COUNT 232 TH/MM3 (150-450); RED BLOOD COUNT 3.86 MIL/MM3 (4.50-5.90); RED CELL DISTRIBUTION WIDTH 13.4 % (11.6-17.2); WHITE BLOOD COUNT 6.9 TH/MM3 (4.0-11.0)
[2017-04-24 18:43] LABS: AMPHETAMINE, URINE NEG (NEG); BARBITURATES, URINE NEG (NEG); COCAINE, URINE POS (NEG)
--- NOTE | 2017-04-24 18:48 | PD ---
Data Data Last Documented VS Vital Signs Date Time Temp Pulse Resp B/P Pulse Ox O2 Delivery O2 Flow Rate FiO2 04/24/17 17:41 100 Room Air 04/24/17 16:56 72 18 139/81 04/24/17 14:59 98.0 Orders Electrocardiogram (04/24/17 17:02) Complete Blood Count With Diff (04/24/17 17:02) Comprehensive Metabolic Panel (04/24/17 17:02) Ckmb (Isoenzyme) Profile (04/24/17 17:02) Troponin I (04/24/17 17:02) Lipase (04/24/17 17:02) Magnesium (Mg) (04/24/17 17:02) Thyroid Stimulating Hormone (04/24/17 17:02) Chest, Single Ap (04/24/17 17:02) Ct Brain W/O Iv Contrast(Rout) (04/24/17 17:02) Iv Access Insert/Monitor (04/24/17 17:02) Ecg Monitoring (04/24/17 17:02) Oximetry (04/24/17 17:02) Orthostatic Vital Signs (04/24/17 17:02) Drug Screen, Random Urine (04/24/17 17:02) Alcohol (Ethanol) (04/24/17 17:02) Sodium Chlor 0.9% 1000 Ml Inj (Ns 1000 M (04/24/17 17:02) Morphine Inj (Morphine Inj) (04/24/17 17:45) Ondansetron Inj (Zofran Inj) (04/24/17 17:45) Labs Laboratory Tests Test 04/24/17 17:38 White Blood Count 6.9 TH/MM3 Red Blood Count 3.86 MIL/MM3 Hemoglobin 12.3 GM/DL Hematocrit 35.9 % Mean Corpuscular Volume 93.0 FL Mean Corpuscular Hemoglobin 31.9 PG Mean Corpuscular Hemoglobin 34.4 % Concent Red Cell Distribution Width 13.4 % Platelet Count 232 TH/MM3 Mean Platelet Volume 7.9 FL Neutrophils (%) (Auto) 51.8 % Lymphocytes (%) (Auto) 30.4 % Monocytes (%) (Auto) 12.6 % Eosinophils (%) (Auto) 4.7 % Basophils (%) (Auto) 0.5 % Neutrophils # (Auto) 3.6 TH/MM3 Lymphocytes # (Auto) 2.1 TH/MM3 Monocytes # (Auto) 0.9 TH/MM3 Eosinophils # (Auto) 0.3 TH/MM3 Basophils # (Auto) 0.0 TH/MM3 CBC Comment DIFF FINAL Differential Comment MDM Supervised Visit with GEMA: Yes Narrative Course The history, exam, and medical decision-making in the associated mid-level provider note were completed with my assistance. I reviewed and agree with the findings presented. I attest that I had a [id number] encounter with the patient on the same day, and personally performed and documented my assessment and findings in the medical record. *My assessment and Findings: Is a 48 through male presents emergency Department with increased lethargy fatigue, some daytime somnolence, and syncopal episodes that he sort of describes as almost falling asleep. This happened once while he was up on his feet because he fell. She is on multiple sedating medications including morphine and Ativan and Flexeril. He denies any recent change in these doses. He's had one seizure in the past when he was weaning off of a high dose of benzodiazepines but no other history of seizures. He has been told he has sleep apnea in the past but has never really followed up on it. He has been told he snores a lot. He does sleep and is unsure if it's truly restful or not. He's never had trouble like this however in the past. He looks overall well. We'll CT his head, check labs. He could have renal problems causing his medications to accumulate. My suspicion is he probably has sleep apnea and is having daytime somnolence that that is marked bleeding to these apparent syncopal episodes. Looks otherwise well. We'll check an EKG. If all his initial studies are negative, he'll need close outpatient follow-up versus admission for observation. Antonio Mackey MD Apr 24, 2017 18:48
[2017-04-24 18:54] LABS: ANION GAP 8 MEQ/L (5-15); AST (GOT) 32 U/L (15-37); BICARBONATE 30.2 MEQ/L (21.0-32.0); BLOOD UREA NITROGEN 14 MG/DL (7-18); CHLORIDE 100 MEQ/L (98-107); GLOMERULAR FILTRATION RATE 64 ML/MIN (>89); MAGNESIUM 2.3 MG/DL (1.5-2.5); POTASSIUM 3.2 MEQ/L (3.5-5.1); SODIUM (NA) 138 MEQ/L (136-145)
[2017-04-24 19:03] VITALS: BP_SYST 134; BP_SYST 139; BP_SYST 151; BP_DIAS 70; BP_DIAS 77; BP_DIAS 81; RESP 15; RESP 19
[2017-04-24 19:03] LABS: ALKALINE PHOSPHATASE 41 U/L (45-117); ALT (GPT) 40 U/L (12-78); CREATINE KINASE 487 U/L (39-308); TOTAL BILIRUBIN ADULT 0.4 MG/DL (0.2-1.0)
--- NOTE | 2017-04-24 19:04 | RADRPT ---
EXAM DATE/TIME: 04/24/2017 18:33 [facility] COMPARISON: CT BRAIN W/O CONTRAST, October 20, 2016, 20:55. INDICATIONS : Patient with dizziness and confusion. RADIATION DOSE: 56.35 CTDIvol (mGy) MEDICAL HISTORY : Hypertension. Cardiovascular disease Hepatitis B. SURGICAL HISTORY : Appendectomy. ENCOUNTER: Initial ACUITY: 1 day PAIN SCALE: 0/10 LOCATION: cranial TECHNIQUE: Multiple contiguous axial images were obtained of the head. Using automated exposure control and adj ustment of the mA and/or kV according to patient size, radiation dose was kept as low as reasonably a chievable to obtain optimal diagnostic quality images. DICOM format image data is available electro nically for review and comparison. FINDINGS: CEREBRUM: The ventricles are normal for age. No evidence of midline shift, mass lesion, hemorrhage or acute in farction. No extra-axial fluid collections are seen. POSTERIOR FOSSA: The cerebellum and brainstem are intact. The 4th ventricle is midline. The cerebellopontine angle i s unremarkable. EXTRACRANIAL: The visualized portion of the orbits is intact. SKULL: The calvaria is intact. No evidence of skull fracture. CONCLUSION: Negative noncontrast CT brain. Hermes Collins MD on April 24, 2017 at 19:02 Board Certified Radiologist. This report was verified electronically.
[2017-04-24 19:21] LABS: CKMB 12.9 NG/ML (0.5-3.6)
[2017-04-24] MEDS ORDERED: POTASSIUM CHLORIDE 10 MEQ CONTROLLED RELEASE TAB PO ONE (19:30)
--- NOTE | 2017-04-25 13:41 | EKG ---
Date Performed: 04/24/2017 Time Performed: 18:00:33 PTAGE: 51 years EKG: Sinus rhythm Since previous tracing, no significant change noted NORMAL ECG PREVIOUS TRACING : 12/25/2015 19.04 DOCTOR: Berto Lamas Interpretating Date/Time 04/25/2017 13:39:50
== END 2017-04-24 19:46 | disposition home or self-care (01) ==
LOC: NEPC 14:56
DX: R42 Dizziness and giddiness (principal); R06.02 Shortness of breath; R55 Syncope and collapse; G89.29 Other chronic pain; M25.551 Pain in right hip; F41.9 Anxiety disorder, unspecified
CPT/HCPCS: 70450; 71010; 80053; 80307; 82550; 82552; 83690; 83735; 84443; 84484; 85025; 93005; 96374; 96375; 99285; J2270; J2405; J7030

== ENCOUNTER 2017-05-30 09:15 | Emergency (ER) | payer MEDICARE, OTHER ==
[~2017-05-30] VITALS: Ht 167.6 cm; Wt 84.0 kg
[~2017-05-30 09:15] MED LIST changes: +CYCL1TAB29 PO; +ENAL10TA PO; +GI MED; -IBUP-232 PO; -MORP1TAB24 PO; +MSIR15 PO; +NITR1SUB3 SL; -NORC5TAB PO; -ORPH100T99 PO
[2017-05-30 09:21] VITALS: BP 132/74; PULSE 74; RESP 15; TEMP 98.2; O2SAT 99
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
[2017-05-30] MEDS ORDERED: KETOROLAC TROMETHAMINE 60 MG/2 ML (IM) VIAL IM ONE (09:45)
== END 2017-05-30 09:54 | disposition home or self-care (01) ==
LOC: NEPD 09:15
DX: M25.511 Pain in right shoulder (principal); M19.90 Unspecified osteoarthritis, unspecified site; I10 Essential (primary) hypertension; F31.9 Bipolar disorder, unspecified; I25.2 Old myocardial infarction; Z86.718 Personal history of other venous thrombosis and embolism
CPT/HCPCS: 96372; 99283; J1885

== ENCOUNTER 2017-05-31 05:20 | Observation (INO) | payer MEDICARE, OTHER ==
[~2017-05-31] VITALS: Ht 167.6 cm; Wt 81.5 kg
[~2017-05-31 05:20] MED LIST changes: -CYCL1TAB29 PO
[2017-05-31 05:22] VITALS: BP 168/87; PULSE 77; RESP 16; TEMP 98.2; O2SAT 98
[2017-05-31] MEDS ORDERED: ASPIRIN 81 MG CHEW TAB CHEW ONE (06:00)
[2017-05-31 06:11] VITALS: BP 146/87; PULSE 70; RESP 18; O2SAT 99
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
[2017-05-31] MEDS ORDERED: SODIUM CHLOR 0.9% 1000 ML INJ 1,000 ML IV ONE (06:15)
--- NOTE | 2017-05-31 06:24 | RADRPT ---
EXAM DATE/TIME: 05/31/2017 06:16 [facility] COMPARISON: CHEST SINGLE AP, April 24, 2017, 17:00. INDICATIONS : Chest pain. MEDICAL HISTORY : Hypertension. Cardiovascular disease. SURGICAL HISTORY : None. ENCOUNTER: Initial ACUITY: 1 day PAIN SCORE: 4/10 LOCATION: Bilateral chest FINDINGS: A single view of the chest demonstrates the lungs to be symmetrically aerated without evidence of mas s, infiltrate or effusion. The cardiomediastinal contours are unremarkable. Osseous structures are intact. CONCLUSION: 1. No acute cardiopulmonary disease. Saroj Quiñonez MD on May 31, 2017 at 6:23 Board Certified Radiologist. This report was verified electronically.
[2017-05-31 06:29] LABS: AUTOMATED NEUTROPHIL # 5.5 TH/MM3 (1.8-7.7); BASOPHIL % 0.6 % (0.0-2.0); EOSINOPHIL # 0.1 TH/MM3 (0-0.4); EOSINOPHIL % 0.6 % (0.0-4.0); HEMATOCRIT 37.9 % (39.0-51.0); HEMO FLAGS DIFF FINAL; LYMPH % 27.2 % (9.0-44.0); LYMPHOCYTE # 2.4 TH/MM3 (1.0-4.8); MEAN CELL VOLUME 92.7 FL (80.0-100.0); MEAN CORPUSCULAR HEMOGLOBIN 31.5 PG (27.0-34.0); MONO % 10.2 % (0.0-8.0); NEUT % 61.4 % (16.0-70.0); PLATELET COUNT 224 TH/MM3 (150-450); RED BLOOD COUNT 4.08 MIL/MM3 (4.50-5.90); RED CELL DISTRIBUTION WIDTH 13.1 % (11.6-17.2); WHITE BLOOD COUNT 8.9 TH/MM3 (4.0-11.0)
[2017-05-31 06:40] LABS: BACTERIA, URINE RARE /hpf; BLOOD, URINE NEG (NEG); COMMENT (UR) CULT NOT INDICATED; CULTURE IF INDICATED CULT NOT INDICATED; GLUCOSE,URINE TRACE mg/dL (NEG); KETONE, URINE NEG (NEG); MUCUS URINE FEW /lpf (OCC); NITRITE,URINE NEG (NEG); PH, URINE 6.5 (5.0-8.5); URINE COLOR LIGHT-YELLOW (YELLW/STRAW)
[2017-05-31 06:54] LABS: ANION GAP 8 MEQ/L (5-15); BICARBONATE 26.1 MEQ/L (21.0-32.0); BLOOD UREA NITROGEN 11 MG/DL (7-18); CHLORIDE 104 MEQ/L (98-107); GLOMERULAR FILTRATION RATE 55 ML/MIN (>89); POTASSIUM 3.8 MEQ/L (3.5-5.1); SODIUM (NA) 138 MEQ/L (136-145)
[2017-05-31 07:00] VITALS: BP 160/86; PULSE 71; RESP 19; O2SAT 97
[2017-05-31 07:00] LABS: CREATINE KINASE 543 U/L (39-308)
[2017-05-31 07:13] LABS: CKMB 9.3 NG/ML (0.5-3.6)
[2017-05-31] MEDS ORDERED: NITROGLYCERIN 2% OINT 1 GM PACKET TOPICAL ONE (07:15)
[2017-05-31] MEDS ORDERED: LORazepam 2 MG/ML VIAL IV PUSH ONE (07:15)
[2017-05-31] MEDS ORDERED: MORPHINE SULFATE 15 MG TAB PO PRN (08:15)
[2017-05-31] MEDS ORDERED: LORazepam 1 MG TAB PO PRN (08:15)
[2017-05-31] MEDS ORDERED: ACETAMINOPHEN 500 MG CPLT PO PRN (08:15)
[2017-05-31] MEDS ORDERED: SODIUM CHLORIDE 0.9% FLUSH 5 ML FLUSH IVF PRN (08:15)
[2017-05-31] MEDS ORDERED: ACETAMINOPHEN/HYDROcodone 325 MG/7.5 MG TAB PO PRN (08:15)
[2017-05-31] MEDS ORDERED: ONDANSETRON HCL 4 MG/2 ML VIAL IV PRN (08:15)
[2017-05-31 08:24] VITALS: O2SAT 96
[2017-05-31 08:35] VITALS: BP 121/73; PULSE 63; RESP 18; TEMP 98; O2SAT 96
[2017-05-31] MEDS ORDERED: DULoxetine HCl DR 60 MG CAP PO SCH (09:00)
[2017-05-31] MEDS ORDERED: ENALAPRIL MALEATE 10 MG TAB PO SCH (09:00)
[2017-05-31] MEDS ORDERED: SODIUM CHLORIDE 0.9% FLUSH 5 ML FLUSH IVF SCH (09:00)
[2017-05-31] MEDS: METOPROLOL TARTRATE 50 MG TAB PO SCH ×2 (09:19→13:37)
--- NOTE | 2017-05-31 09:37 | HHI.HP ---
[facility] Primary Care Physician Hector Dobson MD Chief Complaint Chest pain History of Present Illness This is a 51-year-old male that presents to ED with complaint of "I felt out of it." No states he felt weak. When asked why he thought he was having the symptoms he replies "well, I drink a lot and was outside all day." Patient also admits to using cocaine yesterday as well. States he is feeling better. At this point he still was not mentioned chest discomfort. When specifically asking if any chest discomfort he replies "my breastbone hurt." States the last about 2 hours. He was little short of breath. No nausea or diaphoresis. States had a myocardial infarction in 2001 after having a pulmonary embolus which time he also had a cardiac catheterization. However he does not recall the results of the heart catheterization but does not believe yet many stents. Recall recent stress testing. Denies recent fevers or chills. Denies recent illnesses. Patient states he does not drink on a daily basis. Denies history of prior DTs. Review of Systems General: Patient denies fevers, chills recent, and recent travel HEENT: Patient denies headache, sore throat, difficulty swallowing. Cardiovascular: Has the chest discomfort as mentioned above. States it felt like his heart was beating a little rapidly. Denies sensation of heart beating irregularly. No syncope. Denies diaphoresis. Respiratory: He recalls being short of breath. Denies inspirational chest discomfort. Denies coughing wheezing or hemoptysis. GI: Patient denies nausea, vomiting, diarrhea, abdominal pain, bloody stools. Musculoskeletal: Complains of chronic shoulder pain. Denies calf pain or edema. Neurovascular: Patient denies numbnjoint pain oess, tingling, weakness in extremities. Denies headache. Endocrine: Denies polyuria and polydipsia. Hematologic: Denies easy bruising. Skin: Denies rash or itching. Past Family Social History Allergies: Coded Allergies: penicillin G (Unverified Allergy, Severe, RASH, 05/31/17) Past Medical History Hypertension. Chronic shoulder pain. Bipolar disorder, chronic back pain, pulmonary embolism in 2001 which she states was after having knee surgery. Denies diabetes and hyperlipidemia. Past Surgical History Knee surgery, appendectomy, and tonsillectomy. Reported Medications Reported Meds & Active Scripts Active Reported Enalapril (Enalapril Maleate) 10 Mg Tab 10 Mg PO BID [gi med] Nitroglycerin SL (Nitroglycerin) 0.4 Mg Subl 0.4 Mg SL DIRECTED PRN ONE TABLET UNDER THE TONGUE NEEDED FOR CHEST PAIN, MAY REPEAT EVERY FIVE MINUTES FOR A TOTAL OF 3 DOSES OR CALL 911 IF NO RELIEF Morphine IR (Morphine Sulfate) 15 Mg Tab 15 Mg PO BID PRN Ativan (Lorazepam) 1 Mg Tab 1 Mg PO BID PRN Aspir-81 (Aspirin) [address] (Duloxetine HCl) 60 Mg Capdr 60 Mg PO BID Lopressor (Metoprolol Tartrate) 50 Mg Tab 50 Mg PO TID Active Ordered Medications Current Medications Medications (Trade) Dose Ordered Sig/Timothy Route Start Time Stop Time Status Last Admin (Cymbalta Dr) 60 mg BID PO 05/31/17 09:00 (Vasotec) 10 mg BID PO 05/31/17 09:00 (Lopressor) 50 mg TID PO 05/31/17 09:00 (Msir) 15 mg BID PRN PO 05/31/17 08:15 (Ativan) 1 mg BID PRN PO 05/31/17 08:15 (NS Flush) 2 ml UNSCH PRN IVF 05/31/17 08:15 (NS Flush) 2 ml BID IVF 05/31/17 09:00 (Tylenol) 500 mg Q4H PRN PO 05/31/17 08:15 (Ariel 7.5-325 Mg) 1 tab Q4H PRN PO 05/31/17 08:15 (Zofran Inj) 4 mg Q6H PRN IV 05/31/17 08:15 Family History Questionable family history of CAD. Social History Patient smokes about half pack of cigarettes daily. States he does not drink regularly but he did have 8 beers yesterday. He also states he does not use cocaine regularly but did use cocaine yesterday. Physical Exam Vital Signs Vital Signs Date Time Temp Pulse Resp B/P (MAP) Pulse Ox O2 Delivery O2 Flow Rate FiO2 05/31/17 08:35 98.0 63 18 121/73 (89) 96 05/31/17 08:24 96 21 05/31/17 07:00 71 19 160/86 (110) 97 Room Air 05/31/17 06:11 70 18 146/87 (106) 99 Room Air 05/31/17 05:22 98.2 77 16 168/87 (114) 98 Room Air Physical Exam GENERAL: This is a well-nourished, well-developed patient, in no apparent distress. Patient speaks in clear complete sentences. Patient is pleasant. HEENT: Head is atraumatic and normocephalic. Neck is supple without lymphadenopathy and trachea is midline. No JVD or carotid bruits. CARDIOVASCULAR: Regular rate and rhythm without murmurs, gallops, or rubs. RESPIRATORY: Clear to auscultation. Breath sounds equal bilaterally. No wheezes , rales, or rhonchi. Chest wall is nontender. No use of accessory muscles. GASTROINTESTINAL: Abdomen is nontender, nondistended. Abdomen soft. No obvious pulsatile mass or bruit. No CVA tenderness. Strong femoral pulses bilaterally. Normal bowel sounds in all quadrants. MUSCULOSKELETAL: Patient is moving upper and lower extremities freely. No calf tenderness or edema, no Homans sign. Strong pulses in upper and lower extremities. NEUROLOGICAL: Patient is alert and oriented. Cranial nerves 2-12 are grossly intact. No focal deficits and speech is clear. SKIN: No rash and turgor is normal. Laboratory Laboratory Tests Test 05/31/17 06:15 White Blood Count 8.9 Red Blood Count 4.08 Hemoglobin 12.9 Hematocrit 37.9 Mean Corpuscular Volume 92.7 Mean Corpuscular Hemoglobin 31.5 Mean Corpuscular Hemoglobin Concent 34.0 Red Cell Distribution Width 13.1 Platelet Count 224 Mean Platelet Volume 8.1 Neutrophils (%) (Auto) 61.4 Lymphocytes (%) (Auto) 27.2 Monocytes (%) (Auto) 10.2 Eosinophils (%) (Auto) 0.6 Basophils (%) (Auto) 0.6 Neutrophils # (Auto) 5.5 Lymphocytes # (Auto) 2.4 Monocytes # (Auto) 0.9 Eosinophils # (Auto) 0.1 Basophils # (Auto) 0.0 CBC Comment DIFF FINAL Differential Comment Urine Color LIGHT-YELLOW Urine Turbidity CLEAR Urine pH 6.5 Urine Specific [place] 1.009 Urine Protein NEG Urine Glucose (UA) TRACE Urine Ketones NEG Urine Occult Blood NEG Urine Nitrite NEG Urine Bilirubin NEG Urine Urobilinogen LESS THAN 2.0 Urine Leukocyte Esterase NEG Urine RBC LESS THAN 1 Urine WBC 1 Urine Bacteria RARE Urine Mucus FEW Microscopic Urinalysis Comment CULT NOT INDICATED Blood Urea Nitrogen 11 Creatinine 1.36 Random Glucose 107 Calcium Level 8.4 Sodium Level 138 Potassium Level 3.8 Chloride Level 104 Carbon Dioxide Level 26.1 Anion Gap 8 Estimat Glomerular Filtration Rate 55 Total Creatine Kinase 543 Creatine Kinase MB 9.3 Creatine Kinase MB % 1.7 Troponin I LESS THAN 0.02 Result Diagram: 05/31/17 0615 05/31/17 0615 Imaging Last 48 hours Impressions Chest X-Ray 05/31/17 0554 Signed Impressions: Service Date/Time: Wednesday, May 31, 2017 06:16 - CONCLUSION: 1. No acute cardiopulmonary disease. Saroj Quiñonez MD Course EKGs: Initial EKG is sinus rhythm with nonspecific lateral ST-T changes. Caprini VTE Risk Assessment Caprini VTE Risk Assessment: No/Low Risk (score <= 1) Caprini Risk Assessment Model Point Value = 1 Point Value = 2 Point Value = 3 Point Value = 5 Age 41-60 Minor surgery BMI > 25 kg/m2 Swollen legs Varicose veins or History of unexplained or recurrent spontaneous Oral contraceptives or hormone replacement Sepsis (< 1 month) Serious lung disease, including pneumonia (< 1 month) Abnormal pulmonary function Acute myocardial infarction Congestive heart failure (< 1 month) History of inflammatory bowel disease Medical patient at bed rest Age 61-74 Arthroscopic surgery Major open surgery (> 45 min) Laparoscopic surgery (> 45 min) Malignancy Confined to bed (> 72 hours) Immobilizing plaster cast Central venous access Age >= 75 History of VTE Family history of VTE Factor V Leiden Prothrombin [id number] Lupus anticoagulant Anticardiolipin antibodies Elevated serum homocysteine Heparin-induced thrombocytopenia Other congenital or acquired thrombophilia Stroke (< 1 month) Elective arthroplasty Hip, pelvis, or leg fracture Acute spinal cord injury (< 1 month) Prophylaxis Regimen Total Risk Factor Score Risk Level Prophylaxis Regimen 0-1 Low Early ambulation 2 Moderate Order ONE of the following: *Sequential Compression Device (SCD) *Heparin 5000 units SQ BID 3-4 Higher Order ONE of the following medications: *Heparin 5000 units SQ TID *Enoxaparin/Lovenox 40 mg SQ daily (WT < 150 kg, CrCl > 30 mL/min) *Enoxaparin/Lovenox 30 mg SQ daily (WT < 150 kg, CrCl > 10-29 mL/min) *Enoxaparin/Lovenox 30 mg SQ BID (WT < 150 kg, CrCl > 30 mL/min) AND/OR *Sequential Compression Device (SCD) 5 or more Highest Order ONE of the following medications: *Heparin 5000 units SQ TID (Preferred with Epidurals) *Enoxaparin/Lovenox 40 mg SQ daily (WT < 150 kg, CrCl > 30 mL/min) *Enoxaparin/Lovenox 30 mg SQ daily (WT < 150 kg, CrCl > 10-29 mL/min) *Enoxaparin/Lovenox 30 mg SQ BID (WT < 150 kg, CrCl > 30 mL/min) AND *Sequential Compression Device (SCD) Assessment and Plan Assessment and Plan * Chest pain: Patient has had first set of cardiac enzymes and EKGs. He has been seen by Dr. Hal Dacosta of cardiology in the chest pain center and will have a Lexiscan. He'll be discharge of Lexiscan is nonischemic. * Hypertension: Continue current medication. * Chronic pain: Continue current medication. * Tobacco abuse: Patient has been counseled on importance of smoking cessation. * Cocaine abuse: Patient has been counseled on importance of no longer using cocaine. Patient is stable this time. He is agreeable to this plan. Nicholas Rosenthal May 31, 2017 09:37
[2017-05-31] MEDS ORDERED: REGADENOSON INJ 0.4 MG/5 ML SYR ONE (11:32)
--- NOTE | 2017-05-31 12:59 | RADRPT ---
EXAM DATE/TIME: 05/31/2017 10:55 [place] COMPARISON: No previous studies available for comparison. INDICATIONS : Chest pain. Angina. Myocardial infarction. DOSE: 25.6 mCi Tc99m Myoview at stress. 8.6 mCi Tc99m Myoview at rest. 0.4 mg Lexiscan STRESS SYMPTOMS: Headache and nausea. EJECTION FRACTION: 65% MEDICAL HISTORY : Hypertension. Hepatitis B. Seizures. SURGICAL HISTORY : Cardiac cath. ENCOUNTER: Initial ACUITY: 1 day PAIN SCALE: 3/10 LOCATION: Bilateral chest TECHNIQUE: The patient underwent pharmacologic stress with infusion of prescribed dose. Continuous ECG tracing was monitored during stress. Gated SPECT imaging was performed after stress and conventional SPECT i maging was performed at rest. The examination was performed on a SPECT/CT scanner, both attenuation and non-corrected datasets were reviewed. FINDINGS: DISTRIBUTION: The maximum perfused segment at stress is in the lateral wall. PERFUSION STUDY: The pattern of perfusion at stress is within normal limits with regional variations of perfusion with in 20%. The pattern of perfusion at stress and rest is unchanged. The summed stress score is one. GATED STUDY: There is intact wall motion and thickening without hypokinetic or dyskinetic segments. CONCLUSION: 1. No evidence of stress-induced ischemia. 2. Intact wall motion with 65% ejection fraction. RISK CATEGORY: Low (<1% Annual Mortality Rate) Hermes Collins MD on May 31, 2017 at 12:55 Board Certified Radiologist. This report was verified electronically.
--- NOTE | 2017-05-31 13:09 | HHI.DCPOC ---
Discharge Care Plan Diagnosis: (1) Chest pain (2) Hypertension (3) Cocaine abuse (4) Alcohol abuse (5) Chronic pain (6) Tobacco abuse Goals to Promote Your Health * To prevent worsening of your condition and complications * To maintain your health at the optimal level Directions to Meet Your Goals Take your medications as prescribed Follow your dietary instruction Follow activity as directed Keep your appointments as scheduled Take your immunizations and boosters as scheduled If your symptoms worsen call your PCP, if no PCP go to Urgent Care Center or Emergency Room Smoking is Dangerous to Your Health. Avoid second hand smoke Call the 24-hour hour crisis hotline for domestic abuse at Nicholas Rosenthal May 31, 2017 13:09
[2017-05-31 13:13] VITALS: BP 122/70; PULSE 60; RESP 16; TEMP 97.6; O2SAT 97
--- NOTE | 2017-06-01 07:34 | EKG ---
Date Performed: 05/31/2017 Time Performed: 09:35:57 PTAGE: 51 years EKG: SINUS BRADYCARDIA BORDERLINE ECG Since PREVIOUS TRACING , no significant change noted PREVIOUS TRACIN05/31/2017 06.07 DOCTOR: Elisabeth Branham Interpretating Date/Time 06/01/2017 07:33:59
--- NOTE | 2017-06-01 07:34 | TR ---
Date Performed: 05/31/2017 Time Performed: 11:34:31 DOCTOR: Elisabeth Branham DRUG LIST: CLINICAL HISTORY: REASON FOR TEST: CHEST PAIN REASON FOR ENDING: OBSERVATION: CONCLUSION: Lexiscan stress test was performed under standard four minute protocol. Radionuclid e was injected one minute prior to ending the test. No electrocardiographic abormalities were present to suggest ischemia. Nuclear imaging and interpretation are pending. COMMENTS:
--- NOTE | 2017-06-01 07:35 | EKG ---
Date Performed: 05/31/2017 Time Performed: 06:07:35 PTAGE: 51 years EKG: Sinus rhythm NORMAL ECG Since PREVIOUS TRACING , no significant change noted PREVIOUS TRACIN04/24/2017 18.00 DOCTOR: Elisabeth Branham Interpretating Date/Time 06/01/2017 07:34:09
== END 2017-05-31 16:35 | disposition home or self-care (01) ==
LOC: NEPE 05:20 → NEDA 07:04 → NEPGCP 08:42
PROVIDERS: ADMIT Internal Medicine Cardiovascular Disease; ATTEND Internal Medicine Cardiovascular Disease
DX: R07.89 Other chest pain (principal); I10 Essential (primary) hypertension; M54.9 Dorsalgia, unspecified; G89.29 Other chronic pain; R94.31 Abnormal electrocardiogram [ECG] [EKG]; F14.10 Cocaine abuse, uncomplicated; F17.210 Nicotine dependence, cigarettes, uncomplicated; F10.10 Alcohol abuse, uncomplicated; Z79.82 Long term (current) use of aspirin; Z86.73 Personal history of transient ischemic attack (TIA), and cerebral infarction without residual deficits
CPT/HCPCS: 71010; 78452; 80048; 81001; 82550; 82552; 84484; 85025; 93005; 93017; 96361; 96374; 99285; A9502; G0378; J2060; J2785; J7030

== ENCOUNTER 2017-08-03 17:24 | Emergency (ER) | payer MEDICARE, OTHER ==
[~2017-08-03] VITALS: Ht 170.2 cm; Wt 84.0 kg
[2017-08-03 17:49] VITALS: BP 91/53; PULSE 83; RESP 17; TEMP 98
[2017-08-03] MEDS ORDERED: SODIUM CHLOR 0.9% 1000 ML INJ 1,000 ML IV SCH (17:55)
[2017-08-03] MEDS ORDERED: SODIUM CHLORIDE 0.9% FLUSH 5 ML FLUSH IV FLUSH PRN (18:00)
--- NOTE | 2017-08-03 18:21 | PD ---
HPI Chief Complaint: Altered Mental Status Time Seen by Provider: 17:37 Travel History International Travel<30 days: No Contact w/Intl Traveler<30days: No Traveled to known affect area: No History of Present Illness HPI The patient is a 51-year-old male who presents to the emergency department via EMS with his suitcase sample long means for altered mental status. According to EMS the patient was found sleeping alongside the road, when awakening, he admitted to using morphine, benzodiazepines, and crack cocaine. The patient was then transferred to [facility] for altered mental status and received Narcan 0.4 mg intravenously prior to arrival. The patient does admit to using his morphine earlier as directed, a benzodiazepine, and crack cocaine, but denies any alcohol use. He denies any current physical complaints. He denies any chest pain, shortness breath, nausea, vomiting, or abdominal pain. He denies any headache. He denies any trauma. Patient's Accu-Chek upon arrival was in the 70s. He denies any physical complaints except for being tired. PFSH Past Medical History Hx Anticoagulant Therapy: Yes (325 ASPIRIN DAILY LAST TAKEN 03/11) Arthritis: Yes Asthma: No Autoimmune Disease: No Blood Disorders: No Bipolar Disorder: Yes Anxiety: Yes Depression: Yes Heart Rhythm Problems: No Cancer: No Cardiac Catheterization: Yes (2001) Cardiovascular Problems: Yes High Cholesterol: Yes Chemotherapy: No Chest Pain: Yes Congestive Heart Failure: No COPD: No Cerebrovascular Accident: No Diabetes: No Diminished Hearing: Yes (OCCASIONAL DIZZINESS FROM AN OLD EAR INJURY) Deep Vein Thrombosis: Yes Endocrine: No Gastrointestinal Disorders: Yes (Hepatitis B ) GERD: Yes Genitourinary: No Headaches: No Hepatitis: Yes (TYPE B) Hiatal Hernia: No Heparin Induced Thrombocytopen: No Herniated Disk: Yes Hypertension: Yes Immune Disorder: No Implanted Vascular Access Dvce: No Musculoskeletal: Yes (athritis) Neurologic: Yes (TIA ) Psychiatric: Yes Reproductive: No Respiratory: Yes (PE) Immunizations Current: Yes Migraines: No Myocardial Infarction: Yes Radiation Therapy: No Seizures: Yes (2005 RELATED TO WITHDRAWAL FROM BENZOS) Sleep Apnea: No Thyroid Disease: No Ulcer: No Past Surgical History Abdominal Surgery: No Appendectomy: Yes Cardiac Surgery: No Coronary Artery Bypass Graft: No Ear Surgery: No Endocrine Surgery: No Eye Surgery: No Genitourinary Surgery: No Neurologic Surgery: Yes Oral Surgery: No Thoracic Surgery: No Tonsillectomy: Yes Other Surgery: Yes (steroid injections for pain related to lower back) Social History Alcohol Use: Yes (OCCASIONALLY) Tobacco Use: Yes (1/2 PPD) Substance Use: Yes (Crack used, PT STATES HE'S NOT SURE THE LAST TIME HE USED ) Allergies-Medications (Allergen,Severity, Reaction): Coded Allergies: penicillin G (Unverified Allergy, Severe, RASH, 08/04/17) Reported Meds & Prescriptions Reported Meds & Active Scripts Active Reported Enalapril (Enalapril Maleate) 10 Mg Tab 10 Mg PO BID [gi med] Nitroglycerin SL (Nitroglycerin) 0.4 Mg Subl 0.4 Mg SL DIRECTED PRN ONE TABLET UNDER THE TONGUE NEEDED FOR CHEST PAIN, MAY REPEAT EVERY FIVE MINUTES FOR A TOTAL OF 3 DOSES OR CALL 911 IF NO RELIEF Morphine IR (Morphine Sulfate) 15 Mg Tab 15 Mg PO BID PRN Ativan (Lorazepam) 1 Mg Tab 1 Mg PO BID PRN Aspir-81 (Aspirin) [address] (Duloxetine HCl) 60 Mg Capdr 60 Mg PO BID Lopressor (Metoprolol Tartrate) 50 Mg Tab 50 Mg PO TID Review of Systems Except as stated in HPI: all other systems reviewed are Neg General / Constitutional: No: Fever Eyes: No: Visual changes HENT: No: Headaches Cardiovascular: No: Chest Pain or Discomfort Respiratory: No: Shortness of Breath Gastrointestinal: No: Nausea, Vomiting, Abdominal Pain Neurologic: Positive: Change in Mentation, No: Dizziness Psychiatric: Positive: Substance Abuse Physical Exam Narrative GENERAL: Awake, somewhat lethargic 51-year-old male appears his stated age is in no acute respiratory distress. SKIN: Focused skin assessment warm/dry. No visible track kelly in the ACF. HEAD: Atraumatic. Normocephalic. EYES: Pupils equal and round. Pupils are 2 mm bilateral and reactive. ENT: No nasal bleeding or discharge. Mucous membranes pink and moist. NECK: Trachea midline. No JVD. CARDIOVASCULAR: Regular rate and rhythm. No murmur appreciated. RESPIRATORY: No accessory muscle use. Clear to auscultation. Breath sounds equal bilaterally. GASTROINTESTINAL: Abdomen soft, non-tender, nondistended. No rebound tenderness. MUSCULOSKELETAL: No obvious deformities. No clubbing. No cyanosis. No edema. NEUROLOGICAL: Awake, slightly lethargic. No obvious cranial nerve deficits. Motor grossly within normal limits. Normal speech. Oriented to person, place, month, and year. PSYCHIATRIC: Appropriate mood and affect; insight and judgment normal. Data Data Last Documented VS Vital Signs Date Time Temp Pulse Resp B/P (MAP) Pulse Ox O2 Delivery O2 Flow Rate FiO2 08/04/17 06:01 08/04/17 03:12 83 16 95 Room Air 08/03/17 19:27 2.00 08/03/17 17:49 98.0 Orders Orders Electrocardiogram (08/03/17 17:55) Complete Blood Count With Diff (08/03/17 17:55) Comprehensive Metabolic Panel (08/03/17 17:55) Creatine Kinase (Cpk) (08/03/17 17:55) Prothrombin Time / Inr (Pt) (08/03/17 17:55) Urinalysis - C+S If Indicated (08/03/17 17:55) Blood Glucose (08/03/17 17:55) Ecg Monitoring (08/03/17 17:55) Iv Access Insert/Monitor (08/03/17 17:55) Oximetry (08/03/17 17:55) Sodium Chloride 0.9% Flush (Ns Flush) (08/03/17 18:00) Sodium Chlor 0.9% 1000 Ml Inj (Ns 1000 M (08/03/17 17:55) Drug Screen, Random Urine (08/03/17 17:55) Alcohol (Ethanol) (08/03/17 17:55) Sodium Chlor 0.9% 1000 Ml Inj (Ns 1000 M (08/03/17 19:00) CKMB (08/03/17 18:00) CKMB% (08/03/17 18:00) Ed Discharge Order (08/04/17 05:56) Labs Laboratory Tests Test 08/03/17 18:00 08/03/17 18:30 White Blood Count 11.1 TH/MM3 Red Blood Count 4.14 MIL/MM3 Hemoglobin 13.6 GM/DL Hematocrit 38.8 % Mean Corpuscular Volume 93.7 FL Mean Corpuscular Hemoglobin 32.9 PG Mean Corpuscular Hemoglobin Concent 35.1 % Red Cell Distribution Width 14.0 % Platelet Count 202 TH/MM3 Mean Platelet Volume 8.2 FL Neutrophils (%) (Auto) 63.2 % Lymphocytes (%) (Auto) 23.1 % Monocytes (%) (Auto) 9.8 % Eosinophils (%) (Auto) 3.7 % Basophils (%) (Auto) 0.2 % Neutrophils # (Auto) 7.0 TH/MM3 Lymphocytes # (Auto) 2.6 TH/MM3 Monocytes # (Auto) 1.1 TH/MM3 Eosinophils # (Auto) 0.4 TH/MM3 Basophils # (Auto) 0.0 TH/MM3 CBC Comment DIFF FINAL Differential Comment Prothrombin Time 10.0 SEC Prothromb Time International Ratio 0.9 RATIO Blood Urea Nitrogen 19 MG/DL Creatinine 2.11 MG/DL Random Glucose 85 MG/DL Total Protein 7.5 GM/DL Albumin 4.2 GM/DL Calcium Level 8.4 MG/DL Alkaline Phosphatase 54 U/L Aspartate Amino Transf (AST/SGOT) 37 U/L Alanine Aminotransferase (ALT/SGPT) 34 U/L Total Bilirubin 0.7 MG/DL Sodium Level 139 MEQ/L Potassium Level 3.5 MEQ/L Chloride Level 100 MEQ/L Carbon Dioxide Level 29.7 MEQ/L Anion Gap 9 MEQ/L Estimat Glomerular Filtration Rate 33 ML/MIN Total Creatine Kinase 606 U/L Creatine Kinase MB 20.6 NG/ML Creatine Kinase MB % 3.4 % Ethyl Alcohol Level LESS THAN 3 MG/DL Urine Color YELLOW Urine Turbidity CLEAR Urine pH 5.5 Urine Specific [place] 1.013 Urine Protein TRACE mg/dL Urine Glucose (UA) NEG mg/dL Urine Ketones NEG mg/dL Urine Occult Blood NEG Urine Nitrite NEG Urine Bilirubin NEG Urine Urobilinogen LESS THAN 2.0 MG/DL Urine Leukocyte Esterase NEG Urine RBC LESS THAN 1 /hpf Urine WBC 1 /hpf Urine Amorphous Sediment RARE Microscopic Urinalysis Comment CATH-CULT NOT IND Urine Opiates Screen POS Urine Barbiturates Screen NEG Urine Amphetamines Screen NEG Urine Benzodiazepines Screen NEG Urine Cocaine Screen POS Urine Cannabinoids Screen NEG [facility] Medical Decision Making Medical Screen Exam Complete: Yes Emergency Medical Condition: Yes Medical Record Reviewed: Yes Interpretation(s) EKG reveals normal sinus rhythm with a rate of 78. No ischemic changes or ectopy noted. Differential Diagnosis Differential diagnosis includes alcohol intoxication, polysubstance abuse, opiate overdose, benzodiazepine abuse, hyponatremia, subdural hemorrhage. Narrative Course IV was established, labs are drawn and sent, and the patient was placed on cardiac telemetry monitoring and continuous pulse oximetry monitoring. EKG was ordered and interpreted. Tox screen and alcohol level were sent to lab. Patient does have smaller pupils, does fall asleep easily, but awakens easily. This may be polysubstance abuse and/or accidental overdose. He does state he took his benzodiazepine, morphine, and smokes crack cocaine prior to arrival. The patient was signed out to the oncoming physician at 7 PM. The patient is observed and stable he can be discharged home. Diagnosis Primary Impression: Polysubstance abuse Condition: Stable Liban Angelo MD Aug 03, 2017 18:21
[2017-08-03 18:53] LABS: BLOOD, URINE NEG (NEG); GLUCOSE,URINE NEG (NEG); KETONE, URINE NEG (NEG); NITRITE,URINE NEG (NEG); PH, URINE 5.5 (5.0-8.5); URINE COLOR YELLOW (YELLW/STRAW)
[2017-08-03 18:57] LABS: COMMENT (UR) CATH-CULT NOT IND; CULTURE IF INDICATED CATH CULTURE NOT IND
[2017-08-03 19:00] LABS: BASOPHIL % 0.2 % (0.0-2.0); EOSINOPHIL # 0.4 TH/MM3 (0-0.4); EOSINOPHIL % 3.7 % (0.0-4.0); HEMATOCRIT 38.8 % (39.0-51.0); HEMO FLAGS DIFF FINAL; LYMPH % 23.1 % (9.0-44.0); LYMPHOCYTE # 2.6 TH/MM3 (1.0-4.8); MEAN CELL VOLUME 93.7 FL (80.0-100.0); MEAN CORPUSCULAR HEMOGLOBIN 32.9 PG (27.0-34.0); MEAN CORPUSCULAR HGB CONC 35.1 % (32.0-36.0); MONO % 9.8 % (0.0-8.0); NEUT % 63.2 % (16.0-70.0); PLATELET COUNT 202 TH/MM3 (150-450); RED BLOOD COUNT 4.14 MIL/MM3 (4.50-5.90); WHITE BLOOD COUNT 11.1 TH/MM3 (4.0-11.0)
[2017-08-03] MEDS ORDERED: SODIUM CHLOR 0.9% 1000 ML INJ 1,000 ML IV ONE (19:00)
[2017-08-03 19:06] LABS: ALT (GPT) 34 U/L (12-78); ANION GAP 9 MEQ/L (5-15); AST (GOT) 37 U/L (15-37); BICARBONATE 29.7 MEQ/L (21.0-32.0); BLOOD UREA NITROGEN 19 MG/DL (7-18); CHLORIDE 100 MEQ/L (98-107); GLOMERULAR FILTRATION RATE 33 ML/MIN (>89); POTASSIUM 3.5 MEQ/L (3.5-5.1); SODIUM (NA) 139 MEQ/L (136-145)
[2017-08-03 19:08] LABS: INTERNATIONAL NORMALIZED RATIO 0.9 RATIO
[2017-08-03 19:09] LABS: ALKALINE PHOSPHATASE 54 U/L (45-117); CREATINE KINASE 606 U/L (39-308); TOTAL BILIRUBIN ADULT 0.7 MG/DL (0.2-1.0)
[2017-08-03 19:27] VITALS: BP 99/55; PULSE 84; RESP 16; O2SAT 99
[2017-08-03 19:46] LABS: ALCOHOL LESS THAN 3 MG/DL (0-5)
[2017-08-03 20:04] LABS: CKMB 20.6 NG/ML (0.5-3.6)
[2017-08-03 22:52] VITALS: BP 107/63; PULSE 81; RESP 16; O2SAT 96
[2017-08-04 02:07] VITALS: BP 107/58; PULSE 80; RESP 16; O2SAT 95
[2017-08-04 03:12] VITALS: BP 115/55; PULSE 83; RESP 16; O2SAT 95
--- NOTE | 2017-08-04 05:55 | PD ---
Physical Exam Date Seen by Provider: Aug 03, 2017 Time Seen by Provider: 22:00 Narrative Patient sleeping comfortably seen by prior provider patient had received Narcan because of suspected combination overdose oxygen saturation on 2 L was 99-100% all night he is ready for discharge is sleeping all night without needing repeat Narcan nor D satting and not becoming apneic Data Data Last Documented VS Vital Signs Date Time Temp Pulse Resp B/P (MAP) Pulse Ox O2 Delivery O2 Flow Rate FiO2 08/04/17 03:12 83 16 115/55 (75) 95 Room Air 08/03/17 19:27 2.00 08/03/17 17:49 98.0 Orders Orders Electrocardiogram (08/03/17 17:55) Complete Blood Count With Diff (08/03/17 17:55) Comprehensive Metabolic Panel (08/03/17 17:55) Creatine Kinase (Cpk) (08/03/17 17:55) Prothrombin Time / Inr (Pt) (08/03/17 17:55) Urinalysis - C+S If Indicated (08/03/17 17:55) Blood Glucose (08/03/17 17:55) Ecg Monitoring (08/03/17 17:55) Iv Access Insert/Monitor (08/03/17 17:55) Oximetry (08/03/17 17:55) Sodium Chloride 0.9% Flush (Ns Flush) (08/03/17 18:00) Sodium Chlor 0.9% 1000 Ml Inj (Ns 1000 M (08/03/17 17:55) Drug Screen, Random Urine (08/03/17 17:55) Alcohol (Ethanol) (08/03/17 17:55) Sodium Chlor 0.9% 1000 Ml Inj (Ns 1000 M (08/03/17 19:00) CKMB (08/03/17 18:00) CKMB% (08/03/17 18:00) Labs Laboratory Tests Test 08/03/17 18:00 08/03/17 18:30 White Blood Count 11.1 TH/MM3 Red Blood Count 4.14 MIL/MM3 Hemoglobin 13.6 GM/DL Hematocrit 38.8 % Mean Corpuscular Volume 93.7 FL Mean Corpuscular Hemoglobin 32.9 PG Mean Corpuscular Hemoglobin Concent 35.1 % Red Cell Distribution Width 14.0 % Platelet Count 202 TH/MM3 Mean Platelet Volume 8.2 FL Neutrophils (%) (Auto) 63.2 % Lymphocytes (%) (Auto) 23.1 % Monocytes (%) (Auto) 9.8 % Eosinophils (%) (Auto) 3.7 % Basophils (%) (Auto) 0.2 % Neutrophils # (Auto) 7.0 TH/MM3 Lymphocytes # (Auto) 2.6 TH/MM3 Monocytes # (Auto) 1.1 TH/MM3 Eosinophils # (Auto) 0.4 TH/MM3 Basophils # (Auto) 0.0 TH/MM3 CBC Comment DIFF FINAL Differential Comment Prothrombin Time 10.0 SEC Prothromb Time International Ratio 0.9 RATIO Blood Urea Nitrogen 19 MG/DL Creatinine 2.11 MG/DL Random Glucose 85 MG/DL Total Protein 7.5 GM/DL Albumin 4.2 GM/DL Calcium Level 8.4 MG/DL Alkaline Phosphatase 54 U/L Aspartate Amino Transf (AST/SGOT) 37 U/L Alanine Aminotransferase (ALT/SGPT) 34 U/L Total Bilirubin 0.7 MG/DL Sodium Level 139 MEQ/L Potassium Level 3.5 MEQ/L Chloride Level 100 MEQ/L Carbon Dioxide Level 29.7 MEQ/L Anion Gap 9 MEQ/L Estimat Glomerular Filtration Rate 33 ML/MIN Total Creatine Kinase 606 U/L Creatine Kinase MB 20.6 NG/ML Creatine Kinase MB % 3.4 % Ethyl Alcohol Level LESS THAN 3 MG/DL Urine Color YELLOW Urine Turbidity CLEAR Urine pH 5.5 Urine Specific [place] 1.013 Urine Protein TRACE mg/dL Urine Glucose (UA) NEG mg/dL Urine Ketones NEG mg/dL Urine Occult Blood NEG Urine Nitrite NEG Urine Bilirubin NEG Urine Urobilinogen LESS THAN 2.0 MG/DL Urine Leukocyte Esterase NEG Urine RBC LESS THAN 1 /hpf Urine WBC 1 /hpf Urine Amorphous Sediment RARE Microscopic Urinalysis Comment CATH-CULT NOT IND Urine Opiates Screen POS Urine Barbiturates Screen NEG Urine Amphetamines Screen NEG Urine Benzodiazepines Screen NEG Urine Cocaine Screen POS Urine Cannabinoids Screen NEG MDM Supervised Visit with GEMA: No Diagnosis Primary Impression: Polysubstance abuse Patient Instructions: Adult Overdose (ED), General Instructions Disposition: 01 DISCHARGE HOME Condition: Bert Ozuna MD Aug 04, 2017 05:55
--- NOTE | 2017-08-04 18:16 | EKG ---
Date Performed: 08/03/2017 Time Performed: 18:13:37 PTAGE: 51 years EKG: Sinus rhythm NORMAL ECG PREVIOUS TRACING : 05/31/2017 09.35 DOCTOR: Crescencio Rothman Interpretating Date/Time 08/04/2017 18:12:29
== END 2017-08-04 06:31 | disposition home or self-care (01) ==
LOC: NEPC 17:24
DX: F19.10 Other psychoactive substance abuse, uncomplicated (principal); F31.9 Bipolar disorder, unspecified; F41.9 Anxiety disorder, unspecified; I10 Essential (primary) hypertension; I25.2 Old myocardial infarction; M19.90 Unspecified osteoarthritis, unspecified site; Z79.82 Long term (current) use of aspirin
CPT/HCPCS: 80053; 80307; 81001; 82550; 82552; 85025; 85610; 93005; 96360; 96361; 99284; J7030

== ENCOUNTER 2017-12-27 17:58 | Observation (INO) | payer MEDICARE, OTHER ==
[~2017-12-27 17:58] MED LIST changes: -ASPI81TA81; +ASPI81TA81 PO
[2017-12-27 18:25] VITALS: BP 90/46; PULSE 92; RESP 16; TEMP 98.6; O2SAT 96
[2017-12-27 18:36] VITALS: O2SAT 97
--- NOTE | 2017-12-27 19:22 | RADRPT ---
EXAM DATE/TIME: 12/27/2017 19:01 [facility] COMPARISON: CHEST SINGLE AP, May 31, 2017, 6:16. INDICATIONS : Chest pain. MEDICAL HISTORY : Hypertension. Cardiovascular disease. SURGICAL HISTORY : None. ENCOUNTER: Initial ACUITY: 1 day PAIN SCORE: Non-responsive. LOCATION: chest FINDINGS: A single view of the chest demonstrates the lungs to be symmetrically aerated without evidence of mas s, infiltrate or effusion. The cardiomediastinal contours are unremarkable. Osseous structures are intact. CONCLUSION: No acute disease. David Calvin MD FACR on December 27, 2017 at 19:20 Board Certified Radiologist. This report was verified electronically.
[2017-12-27 19:44] VITALS: BP 105/54; PULSE 87; RESP 20; O2SAT 97
[2017-12-27 19:57] LABS: AUTOMATED NEUTROPHIL # 4.3 TH/MM3 (1.8-7.7); BASOPHIL % 0.5 % (0.0-2.0); EOSINOPHIL # 0.3 TH/MM3 (0-0.4); EOSINOPHIL % 3.4 % (0.0-4.0); HEMATOCRIT 41.4 % (39.0-51.0); LYMPH % 36.5 % (9.0-44.0); LYMPHOCYTE # 3.3 TH/MM3 (1.0-4.8); MEAN CELL VOLUME 93.8 FL (80.0-100.0); MEAN CORPUSCULAR HEMOGLOBIN 31.7 PG (27.0-34.0); MEAN CORPUSCULAR HGB CONC 33.8 % (32.0-36.0); MEAN PLATELET VOLUME 7.9 FL (7.0-11.0); MONO % 11.8 % (0.0-8.0); MONOCYTE # 1.1 TH/MM3 (0-0.9); NEUT % 47.8 % (16.0-70.0); PLATELET COUNT 283 TH/MM3 (150-450); RED BLOOD COUNT 4.41 MIL/MM3 (4.50-5.90); RED CELL DISTRIBUTION WIDTH 14.2 % (11.6-17.2); WHITE BLOOD COUNT 9.1 TH/MM3 (4.0-11.0)
[2017-12-27 20:09] LABS: BICARBONATE 21.5 MEQ/L (21.0-32.0); BLOOD UREA NITROGEN 26 MG/DL (7-18); CALCIUM 8.3 MG/DL (8.5-10.1); CHLORIDE 108 MEQ/L (98-107); CREATININE 2.26 MG/DL (0.60-1.30); GLOMERULAR FILTRATION RATE 30 ML/MIN (>89); GLUCOSE,RANDOM 119 MG/DL (74-106); SODIUM (NA) 142 MEQ/L (136-145)
[2017-12-27 20:13] LABS: TROPONIN I LESS THAN 0.02 NG/ML (0.02-0.05)
--- NOTE | 2017-12-27 20:17 | RADRPT ---
EXAM DATE/TIME: 12/27/2017 19:39 [facility] COMPARISON: No previous studies available for comparison. INDICATIONS : Left knee pain for several days with no known injury MEDICAL HISTORY : None. SURGICAL HISTORY : None. ENCOUNTER: Initial ACUITY: 3 days PAIN SCORE: 5/10 LOCATION: Left medial knee FINDINGS: Mild changes loss of articular cartilage in the medial compartment. Trace joint effusion is present. Alignment anatomic. No fracture. CONCLUSION: Mild degenerative changes with trace joint effusion David Calvin MD FACR on December 27, 2017 at 20:14 Board Certified Radiologist. This report was verified electronically.
[2017-12-27] MEDS ORDERED: SODIUM CHLOR 0.9% 1000 ML INJ 1,000 ML IV ONE (20:30)
[2017-12-27] MEDS ORDERED: POTASSIUM CHLORIDE 20 MEQ CONTROLLED RELEASE TAB PO ONE (21:00)
[2017-12-27 21:09] LABS: ALBUMIN 3.7 GM/DL (3.4-5.0); DIRECT BILIRUBIN ADULT 0.1 MG/DL (0.0-0.2)
[2017-12-27 21:12] LABS: INDIRECT BILIRUBIN 0.2 MG/DL (0.0-0.8); TOTAL BILIRUBIN ADULT 0.3 MG/DL (0.2-1.0); TOTAL PROTEIN 6.9 GM/DL (6.4-8.2)
--- NOTE | 2017-12-27 21:15 | PD ---
HPI Chief Complaint: Chest Pain Time Seen by Provider: 18:51 Travel History International Travel<30 days: No Contact w/Intl Traveler<30days: No Traveled to known affect area: No History of Present Illness HPI 52-year-old male that presents to the ED for evaluation of left-sided chest pain. Per patient he was walking when he developed left-sided chest pain. Per patient has had left-sided chest pain only today. He has a history of cardiac disease. He denies any urinary or bowel movement issues. He does tell me that he has drank 4 beers. He was brought here by ambulance because of the chest pain. He states he has a history of heart disease and takes medications for it. History is a little bit limited as patient does appear to be intoxicated. Apparently patient was given nitroglycerin and aspirin with improvement of symptoms. When I went into the room patient states that he no longer has the chest pain and his only concern is that he has pain on his left leg. Per patient he had surgery in the leg for a meniscus repair. States that it hurts to move and he denies any injury. Per patient has been going on for about 3 days. Pain per patient is 7 out of 10. Again history is limited because of patient's acute intoxication. PFSH Past Medical History Hx Anticoagulant Therapy: Yes (325 ASPIRIN DAILY LAST TAKEN 03/11) Arthritis: Yes Asthma: No Autoimmune Disease: No Blood Disorders: No Bipolar Disorder: Yes Anxiety: Yes Depression: Yes Heart Rhythm Problems: No Cancer: No Cardiac Catheterization: Yes (2001) Cardiovascular Problems: Yes (AR) High Cholesterol: Yes Chemotherapy: No Chest Pain: Yes Congestive Heart Failure: No COPD: No Cerebrovascular Accident: No Diabetes: No Diminished Hearing: Yes (OCCASIONAL DIZZINESS FROM AN OLD EAR INJURY) Deep Vein Thrombosis: Yes Endocrine: No Gastrointestinal Disorders: Yes (Hepatitis B ) GERD: Yes Genitourinary: No Headaches: No Hepatitis: Yes (TYPE B) Hiatal Hernia: No Heparin Induced Thrombocytopen: No Herniated Disk: Yes Hypertension: Yes Immune Disorder: No Implanted Vascular Access Dvce: No Musculoskeletal: Yes (athritis) Neurologic: Yes (TIA ) Psychiatric: Yes Reproductive: No Respiratory: Yes (PE) Immunizations Current: Yes Migraines: No Myocardial Infarction: Yes Radiation Therapy: No Seizures: Yes (2005 RELATED TO WITHDRAWAL FROM BENZOS) Sleep Apnea: No Thyroid Disease: No Ulcer: No Past Surgical History Abdominal Surgery: No Appendectomy: Yes Cardiac Surgery: No Coronary Artery Bypass Graft: No Ear Surgery: No Endocrine Surgery: No Eye Surgery: No Genitourinary Surgery: No Neurologic Surgery: Yes Oral Surgery: No Thoracic Surgery: No Tonsillectomy: Yes Other Surgery: Yes (steroid injections for pain related to lower back) Family History Family Myocardial Infarction: No Social History Alcohol Use: Yes (OCCASIONALLY) Tobacco Use: Yes (1/2 PPD) Substance Use: Yes (Crack used, PT STATES HE'S NOT SURE THE LAST TIME HE USED ) Allergies-Medications (Allergen,Severity, Reaction): Coded Allergies: penicillin G (Unverified Allergy, Severe, RASH, 12/27/17) Reported Meds & Prescriptions Reported Meds & Active Scripts Active Reported Enalapril (Enalapril Maleate) 10 Mg Tab 10 Mg PO BID [gi med] Nitroglycerin SL (Nitroglycerin) 0.4 Mg Subl 0.4 Mg SL DIRECTED PRN ONE TABLET UNDER THE TONGUE NEEDED FOR CHEST PAIN, MAY REPEAT EVERY FIVE MINUTES FOR A TOTAL OF 3 DOSES OR CALL 911 IF NO RELIEF Morphine IR (Morphine Sulfate) 15 Mg Tab 15 Mg PO BID PRN Ativan (Lorazepam) 1 Mg Tab 1 Mg PO BID PRN Aspir-81 (Aspirin) [address] (Duloxetine HCl) 60 Mg Capdr 60 Mg PO BID Lopressor (Metoprolol Tartrate) 50 Mg Tab 50 Mg PO TID Review of Systems Except as stated in HPI: all other systems reviewed are Neg Physical Exam Narrative GENERAL: SKIN: Warm and dry. HEAD: Atraumatic. Normocephalic. EYES: Pupils equal and round. No scleral icterus. No injection or drainage. ENT: No nasal bleeding or discharge. Mucous membranes pink and moist. Tongue is midline. No uvula deviation. NECK: Trachea midline. No JVD. CARDIOVASCULAR: Regular rate and rhythm. No murmurs, S3, S4. RESPIRATORY: No accessory muscle use. Clear to auscultation. Breath sounds equal bilaterally. GASTROINTESTINAL: Abdomen soft, non-tender, nondistended. Hepatic and splenic margins not palpable. MUSCULOSKELETAL: Extremities without clubbing, cyanosis, or edema. No obvious deformities. Full range of motion of the upper and lower extremities bilaterally. 2+ pulses bilaterally. Patient has full range of motion of the left knee and has pain on the medial aspect of the knee. Ligaments appear to be intact. NEUROLOGICAL: Awake and alert. No obvious cranial nerve deficits. Motor grossly within normal limits. Five out of 5 muscle strength in the arms and legs. Normal speech. PSYCHIATRIC: Appropriate mood and affect; insight and judgment normal. Data Data Last Documented VS Vital Signs Date Time Temp Pulse Resp B/P (MAP) Pulse Ox O2 Delivery O2 Flow Rate FiO2 12/27/17 19:44 87 20 105/54 (71) 97 Room Air 12/27/17 18:25 98.6 Orders Orders Electrocardiogram (12/27/17 18:31) Complete Blood Count With Diff (12/27/17 18:31) Basic Metabolic Panel (Bmp) (12/27/17 18:31) Ckmb (Isoenzyme) Profile (12/27/17 18:31) Troponin I (12/27/17 18:31) Chest, Single Ap (12/27/17 18:31) Iv Access Insert/Monitor (12/27/17 18:31) Ecg Monitoring (12/27/17 18:31) Oxygen Administration (12/27/17 18:31) Oximetry (12/27/17 18:31) Knee, Complete (4vws) (12/27/17 ) Alcohol (Ethanol) (12/27/17 19:26) Hepatic Functional Panel (12/27/17 19:26) Lipase (12/27/17 19:26) CKMB (12/27/17 18:25) CKMB% (12/27/17 18:25) Sodium Chlor 0.9% 1000 Ml Inj (Ns 1000 M (12/27/17 20:30) Potassium Chloride (Kcl) (12/27/17 21:00) Ckmb (Isoenzyme) Profile (12/27/17 22:36) Ckmb (Isoenzyme) Profile (12/28/17 01:36) Troponin I (12/27/17 22:36) Troponin I (12/28/17 01:36) Electrocardiogram (12/27/17 22:36) Electrocardiogram (12/28/17 01:36) Admit Order (Ed Use Only) (12/27/17 22:48) Labs Laboratory Tests Test 12/27/17 18:25 12/27/17 19:50 White Blood Count 9.1 TH/MM3 Red Blood Count 4.41 MIL/MM3 Hemoglobin 14.0 GM/DL Hematocrit 41.4 % Mean Corpuscular Volume 93.8 FL Mean Corpuscular Hemoglobin 31.7 PG Mean Corpuscular Hemoglobin Concent 33.8 % Red Cell Distribution Width 14.2 % Platelet Count 283 TH/MM3 Mean Platelet Volume 7.9 FL Neutrophils (%) (Auto) 47.8 % Lymphocytes (%) (Auto) 36.5 % Monocytes (%) (Auto) 11.8 % Eosinophils (%) (Auto) 3.4 % Basophils (%) (Auto) 0.5 % Neutrophils # (Auto) 4.3 TH/MM3 Lymphocytes # (Auto) 3.3 TH/MM3 Monocytes # (Auto) 1.1 TH/MM3 Eosinophils # (Auto) 0.3 TH/MM3 Basophils # (Auto) 0.0 TH/MM3 CBC Comment DIFF FINAL Differential Comment Blood Urea Nitrogen 26 MG/DL Creatinine 2.26 MG/DL Random Glucose 119 MG/DL Calcium Level 8.3 MG/DL Sodium Level 142 MEQ/L Potassium Level 3.2 MEQ/L Chloride Level 108 MEQ/L Carbon Dioxide Level 21.5 MEQ/L Anion Gap 13 MEQ/L Estimat Glomerular Filtration Rate 30 ML/MIN Total Creatine Kinase 584 U/L Creatine Kinase MB 13.9 NG/ML Creatine Kinase MB % 2.4 % Troponin I LESS THAN 0.02 NG/ML Total Bilirubin 0.3 MG/DL Direct Bilirubin 0.1 MG/DL Indirect Bilirubin 0.2 MG/DL Aspartate Amino Transf (AST/SGOT) 32 U/L Alanine Aminotransferase (ALT/SGPT) 30 U/L Alkaline Phosphatase 48 U/L Total Protein 6.9 GM/DL Albumin 3.7 GM/DL Lipase 78 U/L Ethyl Alcohol Level 51 MG/DL MDM Medical Decision Making Medical Screen Exam Complete: Yes Emergency Medical Condition: Yes Medical Record Reviewed: Yes Interpretation(s) CBC & BMP Diagram 12/27/17 18:25 Calcium Level 8.3 L Troponin negative. CK slightly elevated. Last Impressions Chest X-Ray 12/27/17 1831 Signed Impressions: Service Date/Time: Wednesday, December 27, 2017 19:01 - CONCLUSION: No acute disease. David Calvin MD FACR Knee X-Ray 12/27/17 0000 Signed Impressions: Service Date/Time: Wednesday, December 27, 2017 19:39 - CONCLUSION: Mild degenerative changes with trace joint effusion David Calvin MD FACR Differential Diagnosis Chest pain versus ACS versus chronic pain versus alcohol abuse versus atypical chest pain versus acute on chronic pain versus fracture Narrative Course 52-year-old male that presents to the ED for evaluation of chest pain. Patient was properly examined and was found to have signs and symptoms of unclear etiology. He does have a significant history of substance abuse but also has a history of heart disease. Labs and imaging were ordered. In regards to his knee pain this appears to be chronic I do not see any sign of acute disease. X- ray was done twice and a bone injury and x-ray was negative for this. Labs and imaging here have been essentially unremarkable other than positive for alcohol. He does appear to have some dehydration. Patient was given IV fluids. Because of the patient's chest discomfort I do recommend admission for chest pain center for chest pains and a rule out. He did have a stress test in May which is more than 6 months ago. He continues to use drugs and I suspect that he is likely noncompliant. Labs and imaging were essentially unremarkable other than for positive alcohol of 50. My attending Dr. Pérez evaluated the patient recommends admission to the chest pain center for further eval. Diagnosis Primary Impression: Chest pain Qualified Codes: R07.9 - Chest pain, unspecified Admitting Information Admitting Physician Requests: Binh Sheikh Dec 27, 2017 21:15
[2017-12-27 23:14] VITALS: BP 107/64; PULSE 78; RESP 20; O2SAT 97
[2017-12-27 23:44] LABS: TROPONIN I LESS THAN 0.02 NG/ML (0.02-0.05)
[2017-12-28 03:24] LABS: TROPONIN I LESS THAN 0.02 NG/ML (0.02-0.05)
[2017-12-28 03:40] VITALS: PULSE 75
[2017-12-28 05:06] VITALS: BP 136/75; PULSE 72; RESP 18; TEMP 97.7; O2SAT 99
[2017-12-28 07:46] VITALS: PULSE 65
[2017-12-28 08:50] VITALS: BP 115/63; PULSE 67; RESP 18; TEMP 97.8; O2SAT 98
[2017-12-28] MEDS ORDERED: METOPROLOL TARTRATE 50 MG TAB PO SCH (09:00)
[2017-12-28] MEDS ORDERED: ENALAPRIL MALEATE 10 MG TAB PO SCH (09:00)
[2017-12-28] MEDS ORDERED: DULoxetine HCl DR 60 MG CAP PO SCH (09:00)
--- NOTE | 2017-12-28 09:10 | HHI.HP ---
[facility] Primary Care Physician Hector Dobson MD Chief Complaint This is a 52-year-old male with history of bandemia without taking medication, tobacco abuse, and polysubstance abuse that presents to ED via [facility] with a complaint of developing a chest discomfort while walking yesterday afternoon. States he used cocaine a little earlier and was smoking a cigarette at the time. Describes it as a ache in the center of his chest. It was a 10 out of 10. It lasted about an hour. Found nothing to worsen or improve when he had the discomfort. He was short of breath and diaphoretic with it. No nausea. States had this before had his heart checked out in the past. I reviewed his records he had a nonischemic Lexiscan 05/31/17 with an EF of 65%. Currently denies chest discomfort. Denies recent illness. Denies fevers or chills. Review of Systems General: Patient denies fevers, chills, and recent travel. HEENT: Patient denies headache, sore throat, difficulty swallowing. Cardiovascular: Has the chest discomfort as mentioned above. Denies sensation of heart beating rapidly or irregularly. No syncope. He was diaphoretic. Respiratory: He was short of breath. Denies inspirational chest discomfort. Denies coughing wheezing or hemoptysis. GI: Patient denies nausea, vomiting, diarrhea, abdominal pain, bloody stools. Musculoskeletal: Patient denies joint pain or edema. Denies calf pain or edema. Neurovascular: Patient denies numbness, tingling, weakness in extremities. Denies headache. Endocrine: Denies polyuria and polydipsia. Hematologic: Denies easy bruising. Skin: Denies rash or itching. Past Family Social History Allergies: Coded Allergies: penicillin G (Unverified Allergy, Severe, RASH, 12/27/17) Reported Medications Reported Meds & Active Scripts Active Reported Enalapril (Enalapril Maleate) 10 Mg Tab 10 Mg PO BID Nitroglycerin SL (Nitroglycerin) 0.4 Mg Subl 0.4 Mg SL DIRECTED PRN ONE TABLET UNDER THE TONGUE NEEDED FOR CHEST PAIN, MAY REPEAT EVERY FIVE MINUTES FOR A TOTAL OF 3 DOSES OR CALL 911 IF NO RELIEF Ativan (Lorazepam) 1 Mg Tab 1 Mg PO BID PRN Aspir-81 (Aspirin) 81 Mg Tabdr 81 Mg PO DAILY Cymbalta DR (Duloxetine HCl) 60 Mg Capdr 60 Mg PO BID Lopressor (Metoprolol Tartrate) 50 Mg Tab 50 Mg PO BID Active Ordered Medications Current Medications Medications (Trade) Dose Ordered Sig/Timothy Route Start Time Stop Time Status Last Admin (Cymbalta Dr) 60 mg BID PO 12/28/17 09:00 (Vasotec) 10 mg BID PO 12/28/17 09:00 (Lopressor) 50 mg BID PO 12/28/17 09:00 Family History States he is not aware of his family medical history. Social History Smokes about one half pack of cigarettes daily for 30 years. Uses cocaine somewhat regularly. Last time was yesterday just prior to having chest discomfort. Also uses marijuana occasionally. Has on average 4 beers a couple times a month. He drinks 4 beers yesterday. Physical Exam Vital Signs Vital Signs Date Time Temp Pulse Resp B/P (MAP) Pulse Ox O2 Delivery O2 Flow Rate FiO2 12/28/17 08:50 97.8 67 18 115/63 (80) 98 12/28/17 07:46 65 12/28/17 05:06 97.7 72 18 136/75 (95) 99 12/28/17 03:40 75 12/27/17 23:14 78 20 107/64 (78) 97 Room Air 12/27/17 19:44 87 20 105/54 (71) 97 Room Air 12/27/17 18:36 97 Room Air 12/27/17 18:25 98.6 92 16 90/46 (61) 96 Physical Exam GENERAL: This is a well-nourished, well-developed patient, in no apparent distress. Patient speaks in clear complete sentences. Patient is pleasant. HEENT: Head is atraumatic and normocephalic. Neck is supple without lymphadenopathy and trachea is midline. No JVD or carotid bruits. CARDIOVASCULAR: Regular rate and rhythm without murmurs, gallops, or rubs. RESPIRATORY: Clear to auscultation. Breath sounds equal bilaterally. No wheezes , rales, or rhonchi. Chest wall is nontender. No use of accessory muscles. GASTROINTESTINAL: Abdomen is nontender, nondistended. Abdomen soft. No obvious pulsatile mass or bruit. No CVA tenderness. Strong femoral pulses bilaterally. Normal bowel sounds in all quadrants. MUSCULOSKELETAL: Patient is moving upper and lower extremities freely. No calf tenderness or edema, no Homans sign. Strong pulses in upper and lower extremities. NEUROLOGICAL: Patient is alert and oriented. Cranial nerves 2-12 are grossly intact. No focal deficits and speech is clear. SKIN: No rash and turgor is normal. Laboratory Laboratory Tests Test 12/27/17 18:25 12/27/17 19:50 12/27/17 23:05 12/28/17 02:40 White Blood Count 9.1 Red Blood Count 4.41 Hemoglobin 14.0 Hematocrit 41.4 Mean Corpuscular Volume 93.8 Mean Corpuscular Hemoglobin 31.7 Mean Corpuscular Hemoglobin Concent 33.8 Red Cell Distribution Width 14.2 Platelet Count 283 Mean Platelet Volume 7.9 Neutrophils (%) (Auto) 47.8 Lymphocytes (%) (Auto) 36.5 Monocytes (%) (Auto) 11.8 Eosinophils (%) (Auto) 3.4 Basophils (%) (Auto) 0.5 Neutrophils # (Auto) 4.3 Lymphocytes # (Auto) 3.3 Monocytes # (Auto) 1.1 Eosinophils # (Auto) 0.3 Basophils # (Auto) 0.0 CBC Comment DIFF FINAL Differential Comment Blood Urea Nitrogen 26 Creatinine 2.26 Random Glucose 119 Calcium Level 8.3 Sodium Level 142 Potassium Level 3.2 Chloride Level 108 Carbon Dioxide Level 21.5 Anion Gap 13 Estimat Glomerular Filtration Rate 30 Total Creatine Kinase 584 480 474 Creatine Kinase MB 13.9 11.1 11.6 Creatine Kinase MB % 2.4 2.3 2.4 Troponin I LESS THAN 0.02 LESS THAN 0.02 LESS THAN 0.02 Total Bilirubin 0.3 Direct Bilirubin 0.1 Indirect Bilirubin 0.2 Aspartate Amino Transf (AST/SGOT) 32 Alanine Aminotransferase (ALT/SGPT) 30 Alkaline Phosphatase 48 Total Protein 6.9 Albumin 3.7 Lipase 78 Ethyl Alcohol Level 51 Result Diagram: 12/27/17 1825 12/27/17 1825 Imaging Last 48 hours Impressions Chest X-Ray 12/27/17 1831 Signed Impressions: Service Date/Time: Wednesday, December 27, 2017 19:01 - CONCLUSION: No acute disease. David Calvin MD FACR Knee X-Ray 12/27/17 0000 Signed Impressions: Service Date/Time: Wednesday, December 27, 2017 19:39 - CONCLUSION: Mild degenerative changes with trace joint effusion David Calvin MD FACR Course EKGs are sinus rhythm without significant ST segment depressions or elevations. Caprini VTE Risk Assessment Caprini VTE Risk Assessment: No/Low Risk (score <= 1) Caprini Risk Assessment Model Point Value = 1 Point Value = 2 Point Value = 3 Point Value = 5 Age 41-60 Minor surgery BMI > 25 kg/m2 Swollen legs Varicose veins or History of unexplained or recurrent spontaneous Oral contraceptives or hormone replacement Sepsis (< 1 month) Serious lung disease, including pneumonia (< 1 month) Abnormal pulmonary function Acute myocardial infarction Congestive heart failure (< 1 month) History of inflammatory bowel disease Medical patient at bed rest Age 61-74 Arthroscopic surgery Major open surgery (> 45 min) Laparoscopic surgery (> 45 min) Malignancy Confined to bed (> 72 hours) Immobilizing plaster cast Central venous access Age >= 75 History of VTE Family history of VTE Factor V Leiden Prothrombin [id number] Lupus anticoagulant Anticardiolipin antibodies Elevated serum homocysteine Heparin-induced thrombocytopenia Other congenital or acquired thrombophilia Stroke (< 1 month) Elective arthroplasty Hip, pelvis, or leg fracture Acute spinal cord injury (< 1 month) Prophylaxis Regimen Total Risk Factor Score Risk Level Prophylaxis Regimen 0-1 Low Early ambulation 2 Moderate Order ONE of the following: *Sequential Compression Device (SCD) *Heparin 5000 units SQ BID 3-4 Higher Order ONE of the following medications: *Heparin 5000 units SQ TID *Enoxaparin/Lovenox 40 mg SQ daily (WT < 150 kg, CrCl > 30 mL/min) *Enoxaparin/Lovenox 30 mg SQ daily (WT < 150 kg, CrCl > 10-29 mL/min) *Enoxaparin/Lovenox 30 mg SQ BID (WT < 150 kg, CrCl > 30 mL/min) AND/OR *Sequential Compression Device (SCD) 5 or more Highest Order ONE of the following medications: *Heparin 5000 units SQ TID (Preferred with Epidurals) *Enoxaparin/Lovenox 40 mg SQ daily (WT < 150 kg, CrCl > 30 mL/min) *Enoxaparin/Lovenox 30 mg SQ daily (WT < 150 kg, CrCl > 10-29 mL/min) *Enoxaparin/Lovenox 30 mg SQ BID (WT < 150 kg, CrCl > 30 mL/min) AND *Sequential Compression Device (SCD) Assessment and Plan Assessment and Plan * Chest pain: Patient has had serial cardiac enzymes and EKGs for ruling out purposes. He will be seen by Dr. Lamas of cardiology in the Chest pain center. At that time further plan will be determined, patient has had a nonischemic stress test about 6 months ago. * Hypertension: We will resume medication. * Chronic renal insufficiency: Patient was given IV hydration. He will need to follow-up with PCP regarding this. * Hyperlipidemia: Patient needs discuss with his PCP medication hyperlipidemia. * Hypokalemia: Patient was given potassium supplementation. * Tobacco abuse: Patient has been counseled on the importance of smoking cessation. * Chronic left knee pain: Patient to follow-up with PCP further plan. Ice as needed. Anti-inflammatories as needed. * Polysubstance abuse: Patient has been counseled importance of no longer using illicit substances. It was explained to him that using cocaine can kill him. He voices understanding of this. Patient is stable at this time. He is agreeable to this plan. Nicholas Rosenthal Dec 28, 2017 09:10
--- NOTE | 2017-12-28 09:45 | HHI.DCPOC ---
Discharge Care Plan Diagnosis: (1) Chest pain (2) Hypertension (3) Hyperlipidemia (4) Hypokalemia (5) Renal insufficiency (6) Chronic knee pain (7) Polysubstance abuse (8) Alcohol abuse (9) Tobacco abuse Goals to Promote Your Health DISCUSS TAKING CHOLESTEROL MEDICATION WITH YOUR PHYSICIAN. FOLLOW UP AT [facility]. * To prevent worsening of your condition and complications * To maintain your health at the optimal level Directions to Meet Your Goals Take your medications as prescribed Follow your dietary instruction Follow activity as directed Keep your appointments as scheduled Take your immunizations and boosters as scheduled If your symptoms worsen call your PCP, if no PCP go to Urgent Care Center or Emergency Room Smoking is Dangerous to Your Health. Avoid second hand smoke Call the 24-hour hour crisis hotline for domestic abuse at Nicholas Rosenthal Dec 28, 2017 09:45
--- NOTE | 2017-12-28 09:54 | PD.CARD.PN ---
Subjective Subjective Remarks Patient reviewed and discussed with PA, records reviewed, then patient seen and examined personally. I am in agreement with the records as documented. History as I obtained reveals heavy alcohol consumption averaging about a 6 pack a day. He also smokes heavily, and uses cocaine when he has the money to do so. Yesterday after being kicked out of his room he realized that he was back on the street again and was fearful. He began to feel weak and heavy and reported chest discomfort as recorded. Current presentation is most likely related to his situational fear and underlying general physical issues. He noted that he was in [facility] for 3 days last year but left AMA. After a long discussion regarding his social behavior and the need to commit himself to seeking help he will be released to return to [facility] and seek help again. Objective Medications Current Medications Medications (Trade) Dose Ordered Sig/Timothy Route Start Time Stop Time Status Last Admin (Cymbalta Dr) 60 mg BID PO 12/28/17 09:00 (Vasotec) 10 mg BID PO 12/28/17 09:00 (Lopressor) 50 mg BID PO 12/28/17 09:00 Vital Signs / I&O Vital Signs Date Time Temp Pulse Resp B/P (MAP) Pulse Ox O2 Delivery O2 Flow Rate FiO2 12/28/17 08:50 97.8 67 18 115/63 (80) 98 12/28/17 07:46 65 12/28/17 05:06 97.7 72 18 136/75 (95) 99 12/28/17 03:40 75 12/27/17 23:14 78 20 107/64 (78) 97 Room Air 12/27/17 19:44 87 20 105/54 (71) 97 Room Air 12/27/17 18:36 97 Room Air 12/27/17 18:25 98.6 92 16 90/46 (61) 96 Physical Exam Chest is clear to auscultation with no rales wheezes or rhonchi Cardiovascular reveals a regular sinus rhythm with no gallops rubs or murmurs Abdomen is nontender but the liver is palpable 3 fingers below the right costal margin and the spleen feel slightly firm Extremities show no edema Mentally he seems to be reasonably intact and exhibits the judgment that he recognizes he needs help and that if he continues current lifestyle he will not have a lot longer to live. He seems to be motivated to make some changes. Laboratory Laboratory Tests Test 12/27/17 18:25 12/27/17 19:50 12/27/17 23:05 12/28/17 02:40 White Blood Count 9.1 TH/MM3 Red Blood Count 4.41 MIL/MM3 Hemoglobin 14.0 GM/DL Hematocrit 41.4 % Mean Corpuscular Volume 93.8 FL Mean Corpuscular Hemoglobin 31.7 PG Mean Corpuscular Hemoglobin Concent 33.8 % Red Cell Distribution Width 14.2 % Platelet Count 283 TH/MM3 Mean Platelet Volume 7.9 FL Neutrophils (%) (Auto) 47.8 % Lymphocytes (%) (Auto) 36.5 % Monocytes (%) (Auto) 11.8 % Eosinophils (%) (Auto) 3.4 % Basophils (%) (Auto) 0.5 % Neutrophils # (Auto) 4.3 TH/MM3 Lymphocytes # (Auto) 3.3 TH/MM3 Monocytes # (Auto) 1.1 TH/MM3 Eosinophils # (Auto) 0.3 TH/MM3 Basophils # (Auto) 0.0 TH/MM3 CBC Comment DIFF FINAL Differential Comment Blood Urea Nitrogen 26 MG/DL Creatinine 2.26 MG/DL Random Glucose 119 MG/DL Calcium Level 8.3 MG/DL Sodium Level 142 MEQ/L Potassium Level 3.2 MEQ/L Chloride Level 108 MEQ/L Carbon Dioxide Level 21.5 MEQ/L Anion Gap 13 MEQ/L Estimat Glomerular Filtration Rate 30 ML/MIN Total Creatine Kinase 584 U/L 480 U/L 474 U/L Creatine Kinase MB 13.9 NG/ML 11.1 NG/ML 11.6 NG/ML Creatine Kinase MB % 2.4 % 2.3 % 2.4 % Troponin I LESS THAN 0.02 NG/ML LESS THAN 0.02 NG/ML LESS THAN 0.02 NG/ML Total Bilirubin 0.3 MG/DL Direct Bilirubin 0.1 MG/DL Indirect Bilirubin 0.2 MG/DL Aspartate Amino Transf (AST/SGOT) 32 U/L Alanine Aminotransferase (ALT/SGPT) 30 U/L Alkaline Phosphatase 48 U/L Total Protein 6.9 GM/DL Albumin 3.7 GM/DL Lipase 78 U/L Ethyl Alcohol Level 51 MG/DL Imaging Last 24 hours Impressions Chest X-Ray 12/27/17 2627 Signed Impressions: Service Date/Time: Wednesday, December 27, 2017 19:01 - CONCLUSION: No acute disease. David Calvin MD FACR Assessment and Plan Assessment and Plan Patient is ruled out had a recent nuclear stress test which was negative and is in need of seeking ongoing outpatient therapy for his drug and alcohol addiction. He is agreeable to returning to [facility] to seek help through them. Discussed Condition With Discussed with patient at some length Berto Lamas MD Dec 28, 2017 09:54
--- NOTE | 2017-12-28 10:02 | EKG ---
Date Performed: 12/28/2017 Time Performed: 02:44:38 PTAGE: 52 years EKG: Sinus rhythm NORMAL ECG No change PREVIOUS TRACING : 12/28/2017 00.40 DOCTOR: Berto Lamas Interpretating Date/Time 12/28/2017 10:00:59
--- NOTE | 2017-12-28 10:02 | EKG ---
Date Performed: 12/28/2017 Time Performed: 00:40:31 PTAGE: 52 years EKG: Sinus rhythm NORMAL ECG No change PREVIOUS TRACING : 12/27/2017 18.35 DOCTOR: Berto Lamas Interpretating Date/Time 12/28/2017 10:01:10
--- NOTE | 2017-12-28 10:03 | EKG ---
Date Performed: 12/27/2017 Time Performed: 23:05:08 PTAGE: 52 years EKG: Sinus rhythm POSSIBLE RIGHT VENTRICULAR CONDUCTION DELAY BORDERLINE ECG No significant change NO PREVIOUS TRACING DOCTOR: Breto Lamas Interpretating Date/Time 12/28/2017 10:02:27
--- NOTE | 2017-12-28 10:04 | EKG ---
Date Performed: 12/27/2017 Time Performed: 18:35:03 PTAGE: 52 years EKG: Sinus rhythm NONSPECIFIC T-WAVE ABNORMALITY BORDERLINE ECG No significant change PREVIOUS TRACING : 12/26/2017 05.32 DOCTOR: Berto Lamas Interpretating Date/Time 12/28/2017 10:03:14
== END 2017-12-28 12:06 | disposition home or self-care (01) ==
LOC: NEPE 17:58 → NEDA 22:50 → NEPGCP 23:35
PROVIDERS: ADMIT Internal Medicine Cardiovascular Disease; ATTEND Internal Medicine Cardiovascular Disease
DX: R07.89 Other chest pain (principal); R06.02 Shortness of breath; E86.0 Dehydration; R61 Generalized hyperhidrosis; I12.9 Hypertensive chronic kidney disease with stage 1 through stage 4 chronic kidney disease, or unspecified chronic kidney disease; N18.9 Chronic kidney disease, unspecified; E78.00 Pure hypercholesterolemia, unspecified; E87.6 Hypokalemia; I25.2 Old myocardial infarction; K21.9 Gastro-esophageal reflux disease without esophagitis; B19.10 Unspecified viral hepatitis B without hepatic coma; M25.562 Pain in left knee; G89.29 Other chronic pain; F31.9 Bipolar disorder, unspecified; F41.9 Anxiety disorder, unspecified; M19.90 Unspecified osteoarthritis, unspecified site; H91.90 Unspecified hearing loss, unspecified ear; F14.90 Cocaine use, unspecified, uncomplicated; F12.90 Cannabis use, unspecified, uncomplicated; Z79.899 Other long term (current) drug therapy; Z79.82 Long term (current) use of aspirin; Z86.73 Personal history of transient ischemic attack (TIA), and cerebral infarction without residual deficits
CPT/HCPCS: 71045; 73564; 80048; 80076; 80307; 82550; 82552; 83690; 84484; 85025; 93005; 99285; G0378; J7030

== ENCOUNTER 2018-01-13 16:27 | Emergency (ER) | payer MEDICARE, OTHER ==
[~2018-01-13] VITALS: Ht 167.6 cm; Wt 82.0 kg
[~2018-01-13 16:27] MED LIST changes: -GI MED; -MSIR15 PO
[2018-01-13 16:29] VITALS: BP 154/90; PULSE 106; RESP 20; TEMP 97.6; O2SAT 98
[2018-01-13 17:06] VITALS: BP 141/90; PULSE 95; RESP 20; O2SAT 100
--- NOTE | 2018-01-13 17:09 | PD ---
HPI Chief Complaint: Chest Pain Time Seen by Provider: 16:52 Travel History International Travel<30 days: No Contact w/Intl Traveler<30days: No Traveled to known affect area: No History of Present Illness HPI 52yo M with PMH of HTN, cocaine abuse was sent here for evaluation of chest pain from Dr. Hector Dobson. Pt was s/p aspirin 325mg PO x1, nitroglycerin 0.4mg sublingual x1. Pt has been having midsternal chest pain for 3 days that is intermittent and radiates to his neck. Associated with sob. Denies any fever, cough, n/v, focal weakness or numbness. No exacerbating or alleviating factor. Had similar pain before and had a cardiac cath in 2001 which he said no stent was place. Said he did cocaine 3-4 days ago but still have chest pain when he does not do cocaine. Pt also with lower abdominal pain and pain is constant, feels like he has to urinate more. PSH include appendectomy. PFSH Past Medical History Hx Anticoagulant Therapy: Yes (325 ASPIRIN DAILY LAST TAKEN 03/11) Arthritis: Yes Asthma: No Autoimmune Disease: No Blood Disorders: No Bipolar Disorder: Yes Anxiety: Yes Depression: Yes Heart Rhythm Problems: No Cancer: No Cardiac Catheterization: Yes Cardiovascular Problems: Yes (ND) High Cholesterol: Yes Chemotherapy: No Chest Pain: Yes Congestive Heart Failure: No COPD: No Cerebrovascular Accident: No Diabetes: No Diminished Hearing: Yes (OCCASIONAL DIZZINESS FROM AN OLD EAR INJURY) Deep Vein Thrombosis: Yes Endocrine: No Gastrointestinal Disorders: Yes (Hepatitis B ) GERD: Yes Genitourinary: No Headaches: No Hepatitis: Yes (TYPE B) Hiatal Hernia: No Heparin Induced Thrombocytopen: No Herniated Disk: Yes Hypertension: Yes Immune Disorder: No Implanted Vascular Access Dvce: No Musculoskeletal: Yes (athritis) Neurologic: Yes (TIA ) Psychiatric: Yes Reproductive: No Respiratory: Yes (PE) Immunizations Current: Yes Migraines: No Myocardial Infarction: Yes Radiation Therapy: No Seizures: Yes (2005 RELATED TO WITHDRAWAL FROM BENZOS) Sleep Apnea: No Thyroid Disease: No Ulcer: No Past Surgical History Abdominal Surgery: No Appendectomy: Yes Cardiac Surgery: No Coronary Artery Bypass Graft: No Ear Surgery: No Endocrine Surgery: No Eye Surgery: No Genitourinary Surgery: No Neurologic Surgery: Yes Oral Surgery: No Thoracic Surgery: No Tonsillectomy: Yes Other Surgery: Yes (steroid injections for pain related to lower back) Social History Alcohol Use: Yes (OCCASIONALLY) Tobacco Use: Yes (1/2 PPD) Substance Use: Yes (Crack used, PT STATES HE'S NOT SURE THE LAST TIME HE USED ) Allergies-Medications (Allergen,Severity, Reaction): Coded Allergies: Sulfa (Sulfonamide Antibiotics) (Verified Allergy, Severe, REDNESS, ) penicillin G (Unverified Allergy, Severe, RASH, 01/13/18) Reported Meds & Prescriptions Reported Meds & Active Scripts Active Reported Omeprazole 20 Mg Tab 20 Mg PO DAILY Mobic (Meloxicam) 7.5 Mg Tab 7.5 Mg PO DAILY Flexeril (Cyclobenzaprine HCl) 10 Mg Tab 10 Mg PO BID Morphine IR (Morphine Sulfate) 30 Mg Tab 30 Mg PO BID PRN Enalapril (Enalapril Maleate) 10 Mg Tab 10 Mg PO BID Nitroglycerin SL (Nitroglycerin) 0.4 Mg Subl 0.4 Mg SL DIRECTED PRN ONE TABLET UNDER THE TONGUE NEEDED FOR CHEST PAIN, MAY REPEAT EVERY FIVE MINUTES FOR A TOTAL OF 3 DOSES OR CALL 911 IF NO RELIEF Ativan (Lorazepam) 1 Mg Tab 1 Mg PO BID PRN Aspir-81 (Aspirin) 81 Mg Tabdr 81 Mg PO DAILY Cymbalta DR (Duloxetine HCl) 60 Mg Capdr 60 Mg PO BID Lopressor (Metoprolol Tartrate) 50 Mg Tab 50 Mg PO BID Review of Systems Except as stated in HPI: all other systems reviewed are Neg Physical Exam Narrative GENERAL: 52yo M in mild distress. SKIN: Focused skin assessment warm/dry. HEAD: Atraumatic. Normocephalic. EYES: Pupils equal and round. No scleral icterus. No injection or drainage. ENT: No nasal bleeding or discharge. Mucous membranes pink and moist. NECK: Trachea midline. No JVD. CARDIOVASCULAR: Regular rate and rhythm. No murmur appreciated. RESPIRATORY: No accessory muscle use. Clear to auscultation. Breath sounds equal bilaterally. GASTROINTESTINAL: Abdomen soft, +TTP suprapubic, LLQ, RLQ. No rebound tenderness or guarding. MUSCULOSKELETAL: No obvious deformities. No clubbing. No cyanosis. No edema. NEUROLOGICAL: Awake and alert. No obvious cranial nerve deficits. Motor grossly within normal limits. Normal speech. PSYCHIATRIC: Appropriate mood and affect; insight and judgment normal. Data Data Last Documented VS Vital Signs Date Time Temp Pulse Resp B/P (MAP) Pulse Ox O2 Delivery O2 Flow Rate FiO2 01/13/18 17:06 95 20 141/90 (107) 100 Room Air 01/13/18 16:29 97.6 Orders Orders Electrocardiogram (01/13/18 ) Electrocardiogram (01/13/18 16:59) Basic Metabolic Panel (Bmp) (01/13/18 16:59) Complete Blood Count With Diff (01/13/18 16:59) Magnesium (Mg) (01/13/18 16:59) Prothrombin Time / Inr (Pt) (01/13/18 16:59) Act Partial Throm Time (Ptt) (01/13/18 16:59) Troponin I (01/13/18 16:59) Chest, Single Ap (01/13/18 16:59) Ct Abd/Pel W Iv Contrast(Rout) (01/13/18 ) Urinalysis - C+S If Indicated (01/13/18 16:59) Morphine Inj (Morphine Inj) (01/13/18 17:45) Iohexol 350 Inj (Omnipaque 350 Inj) (01/13/18 18:16) Labs Laboratory Tests Test 01/13/18 17:12 01/13/18 17:33 White Blood Count 8.4 TH/MM3 Red Blood Count 4.28 MIL/MM3 Hemoglobin 13.7 GM/DL Hematocrit 39.9 % Mean Corpuscular Volume 93.2 FL Mean Corpuscular Hemoglobin 32.1 PG Mean Corpuscular Hemoglobin Concent 34.4 % Red Cell Distribution Width 14.0 % Platelet Count 163 TH/MM3 Mean Platelet Volume 8.9 FL Neutrophils (%) (Auto) 64.2 % Lymphocytes (%) (Auto) 23.1 % Monocytes (%) (Auto) 10.4 % Eosinophils (%) (Auto) 1.3 % Basophils (%) (Auto) 1.0 % Neutrophils # (Auto) 5.4 TH/MM3 Lymphocytes # (Auto) 1.9 TH/MM3 Monocytes # (Auto) 0.9 TH/MM3 Eosinophils # (Auto) 0.1 TH/MM3 Basophils # (Auto) 0.1 TH/MM3 CBC Comment DIFF FINAL Differential Comment Prothrombin Time 11.9 SEC Prothromb Time International Ratio 1.2 RATIO Activated Partial Thromboplast Time 20.4 SEC Blood Urea Nitrogen 11 MG/DL Creatinine 1.12 MG/DL Random Glucose 97 MG/DL Calcium Level 8.4 MG/DL Magnesium Level 2.1 MG/DL Sodium Level 136 MEQ/L Potassium Level 4.2 MEQ/L Chloride Level 99 MEQ/L Carbon Dioxide Level 28.8 MEQ/L Anion Gap 8 MEQ/L Estimat Glomerular Filtration Rate 68 ML/MIN Troponin I LESS THAN 0.02 NG/ML Urine Color COLORLESS Urine Turbidity CLEAR Urine pH 6.5 Urine Specific Adams 1.000 Urine Protein NEG mg/dL Urine Glucose (UA) NEG mg/dL Urine Ketones NEG mg/dL Urine Occult Blood NEG Urine Nitrite NEG Urine Bilirubin NEG Urine Urobilinogen LESS THAN 2.0 MG/DL Urine Leukocyte Esterase TRACE Urine WBC 1 /hpf Microscopic Urinalysis Comment CULT NOT INDICATED MDM Medical Decision Making Medical Screen Exam Complete: Yes Emergency Medical Condition: Yes Differential Diagnosis ACS vs. cystitis vs. colitis Narrative Course 52yo M with chest pain and abdominal pain. Labs reviewed, no leukocytosis. H/ H normal. Troponin negative. UA negative. CXR showed no acute cardiopulmonary process. CT a/p showed no acute findings. Mild constipation. Pt given morphine and pain has improved. Pt was just admitted to chest pain center earlier this month and seen by pastoral worker Dr. Lamas on 12/28/17. Pt had recent stress test. Work up is negative here, pt was just evaluated by pastoral worker earlier this month so do not feel pt needs to be in chest pain center again. Return precautions given. Diagnosis Primary Impression: Chest pain Qualified Codes: R07.9 - Chest pain, unspecified Additional Impression: Abdominal pain Qualified Codes: R10.9 - Unspecified abdominal pain Patient Instructions: General Instructions Departure Forms: Tests/Procedures Additional Instructions: Please follow up with your primary care physician in 2-3 days. Return to the ED if symptoms worsen. Med/Other Pt SpecificInfo: Prescription(s) given Scripts Acetaminophen (Tylenol) 325 Mg Tab 650 MG PO Q6H Y for PAIN SCALE 1 TO 4, #20 TAB 0 Refills Prov: Mary Suarez 01/13/18 Disposition: 01 DISCHARGE HOME Condition: Stable Maira Suarezedwina SEAY Jan 13, 2018 17:09
[2018-01-13] MEDS ORDERED: MOBI7.5T PO (17:11)
[2018-01-13] MEDS ORDERED: CYCL10TA PO (17:11)
[2018-01-13] MEDS ORDERED: MSIR30 PO (17:11)
[2018-01-13] MEDS ORDERED: OMEP20TA93 PO (17:11)
--- NOTE | 2018-01-13 17:31 | RADRPT ---
EXAM DATE/TIME: 01/13/2018 17:12 [facility] COMPARISON: CHEST SINGLE AP, December 27, 2017, 19:01. INDICATIONS : Chest pain and shortness of breath. MEDICAL HISTORY : Hypercholesterolemia. Hypertension Myocardial infarction. Deep vein thrombosis, PE. SURGICAL HISTORY : Cardiac cath. ENCOUNTER: Initial ACUITY: 4 - 6 days PAIN SCORE: 10/10 LOCATION: Bilateral chest FINDINGS: A single view of the chest demonstrates the lungs to be symmetrically aerated without evidence of mas s, infiltrate or effusion. The cardiomediastinal contours are unremarkable. Osseous structures are intact. CONCLUSION: No acute cardiopulmonary process. Alfredo Haile MD on January 13, 2018 at 17:29 Board Certified Radiologist. This report was verified electronically.
[2018-01-13 17:32] LABS: AUTOMATED NEUTROPHIL # 5.4 TH/MM3 (1.8-7.7); BASOPHIL # 0.1 TH/MM3 (0-0.2); EOSINOPHIL # 0.1 TH/MM3 (0-0.4); EOSINOPHIL % 1.3 % (0.0-4.0); HEMATOCRIT 39.9 % (39.0-51.0); HEMOGLOBIN 13.7 GM/DL (13.0-17.0); LYMPH % 23.1 % (9.0-44.0); LYMPHOCYTE # 1.9 TH/MM3 (1.0-4.8); MEAN CELL VOLUME 93.2 FL (80.0-100.0); MEAN CORPUSCULAR HEMOGLOBIN 32.1 PG (27.0-34.0); MEAN CORPUSCULAR HGB CONC 34.4 % (32.0-36.0); MEAN PLATELET VOLUME 8.9 FL (7.0-11.0); MONO % 10.4 % (0.0-8.0); MONOCYTE # 0.9 TH/MM3 (0-0.9); NEUT % 64.2 % (16.0-70.0); PLATELET COUNT 163 TH/MM3 (150-450); RED BLOOD COUNT 4.28 MIL/MM3 (4.50-5.90); WHITE BLOOD COUNT 8.4 TH/MM3 (4.0-11.0)
[2018-01-13] MEDS ORDERED: MORPHINE SULFATE 2 MG/ML SYRINGE IV PUSH ONE (17:45)
[2018-01-13 17:48] LABS: INTERNATIONAL NORMALIZED RATIO 1.2 RATIO; PROTHROMBIN TIME - PATIENT 11.9 SEC (9.8-11.6)
[2018-01-13 17:51] LABS: BILIRUBIN, URINE NEG (NEG); BLOOD, URINE NEG (NEG); GLUCOSE,URINE NEG (NEG); KETONE, URINE NEG (NEG); NITRITE,URINE NEG (NEG); PH, URINE 6.5 (5.0-8.5); URINE COLOR COLORLESS (YELLW/STRAW); URINE LEUKOCYTE ESTERASE TRACE (NEG)
[2018-01-13 18:05] LABS: TROPONIN I LESS THAN 0.02 NG/ML (0.02-0.05)
[2018-01-13 18:15] LABS: BICARBONATE 28.8 MEQ/L (21.0-32.0); BLOOD UREA NITROGEN 11 MG/DL (7-18); CALCIUM 8.4 MG/DL (8.5-10.1); CHLORIDE 99 MEQ/L (98-107); CREATININE 1.12 MG/DL (0.60-1.30); GLOMERULAR FILTRATION RATE 68 ML/MIN (>89); GLUCOSE,RANDOM 97 MG/DL (74-106); MAGNESIUM 2.1 MG/DL (1.5-2.5); SODIUM (NA) 136 MEQ/L (136-145)
[2018-01-13] MEDS ORDERED: IOHEXOL 350 MG/ML 10 ML VIAL (for RAD DIAG) IVCONTRAST ONE (18:16)
--- NOTE | 2018-01-13 18:41 | RADRPT ---
EXAM DATE/TIME: 01/13/2018 18:10 [facility] COMPARISON: No previous studies available for comparison. INDICATIONS : Low abdominal pain X 3 days. IV CONTRAST: 76 cc Omnipaque 350 (iohexol) IV ORAL CONTRAST: No oral contrast ingested. RADIATION DOSE: 6.71 CTDIvol (mGy) MEDICAL HISTORY : Deep venous thrombosis. Hypertension. Cardiovascular disease Hepatitis, substance abuse, PE SURGICAL HISTORY : Appendectomy. ENCOUNTER: Initial ACUITY: 3 days PAIN SCALE: 8/10 LOCATION: abdomen TECHNIQUE: Volumetric scanning of the abdomen and pelvis was performed. Using automated exposure control and ad justment of the mA and/or kV according to patient size, radiation dose was kept as low as reasonably achievable to obtain optimal diagnostic quality images. DICOM format image data is available electro nically for review and comparison. FINDINGS: Lung bases are clear. No pleural or pericardial effusion. No acute findings in the liver, spleen, adrenals, kidneys or pancreas. No calcified gallstones or melyssa iary ductal dilatation. No free fluid. No bowel obstruction. No adenopathy. Mild constipation. CONCLUSION: 1. No acute findings. Mild constipation. Compa Garcia MD on January 13, 2018 at 18:34 Board Certified Radiologist. This report was verified electronically.
[2018-01-13] MEDS ORDERED: TYLE325T PO (19:30)
--- NOTE | 2018-01-15 00:36 | EKG ---
Date Performed: 01/13/2018 Time Performed: 16:36:36 PTAGE: 52 years EKG: SINUS TACHYCARDIA ABNORMAL RHYTHM ECG PREVIOUS TRACING : 12/28/2017 02.44 Compared to previous tracing, rate has increased DOCTOR: Jeancarlos Schaefer Interpretating Date/Time 01/15/2018 00:34:46
== END 2018-01-13 20:02 | disposition home or self-care (01) ==
LOC: NEPC 16:27
DX: R07.9 Chest pain, unspecified (principal); R10.30 Lower abdominal pain, unspecified; R94.31 Abnormal electrocardiogram [ECG] [EKG]; I10 Essential (primary) hypertension; F14.10 Cocaine abuse, uncomplicated; F41.8 Other specified anxiety disorders; K21.9 Gastro-esophageal reflux disease without esophagitis; E78.00 Pure hypercholesterolemia, unspecified; I25.2 Old myocardial infarction; F17.210 Nicotine dependence, cigarettes, uncomplicated; Z86.718 Personal history of other venous thrombosis and embolism; Z79.82 Long term (current) use of aspirin; Z88.2 Allergy status to sulfonamides; Z88.0 Allergy status to penicillin
CPT/HCPCS: 71045; 74177; 80048; 81001; 83735; 84484; 85025; 85610; 85730; 93005; 96374; 99285; J2270; Q9967